=== PATIENT | female | born 1980 | race Caucasian/White ===

== ENCOUNTER 2022-12-19 10:11 | Outpatient (OUT) | payer OTHER, SELFPAY ==
--- NOTE | 2022-12-19 10:20 | XR_ITS ---
The [address] [address] Patient Name: SHANNAN CARRION MRN: [id number] date: 1980 Sex: F Assigned Patient Location: [facility] Current Patient Location: [facility] Accession/Order Number: [id number] Exam Date: 12/19/2022 10:25 Report Date: 12/19/2022 15:17 At the request of: IBETH MELTON Procedure: XR shoulder LT min 2V EXAM: XR shoulder LT min 2V HISTORY: Pain in left shoulder M25.512 COMPARISON: None. TECHNIQUE: 3 views left shoulder. FINDINGS: Mild degenerative change left acromioclavicular joint. No significant degenerative change left glenohumeral joint. No acute fracture or dislocation although there may be mild chronic healed left distal clavicular deformity. Visualized left lung is clear. IMPRESSION: Chronic change left shoulder as noted without acute process. Electronically authenticated by: EMELIA PHILLIPS Date: 12/19/2022 15:17
== END 2022-12-19 10:12 ==
PROVIDERS: PCP Family Medicine; Visit Provider Family Medicine
DX: M25.512 Pain in left shoulder (principal)
CPT/HCPCS: 73030

== ENCOUNTER 2022-12-29 10:21 | Outpatient (OUT) | payer OTHER, SELFPAY ==
--- NOTE | 2022-12-29 10:24 | MM_ITS ---
Patient: SHANNAN CARRION Exam Date: 12/29/2022 : 1980 Gender:F Ordering : DR Moiz Johnston . Admission #: [id number] Family : Order #: [id number] CLICK HERE TO VIEW EXAM RADIOLOGY REPORT PROCEDURE: MM TOMOSYNTHESIS SCREENING BI COMPARISON: None. INDICATIONS: Screening mammogram Z12.31 Calculator Name NCI Breast Cancer Risk Assessment Tool 5 Year Breast Cancer Risk 0.60% Lifetime Breast Cancer Risk 8.00% Personal Breast Cancer No Personal Ovarian Cancer No Treatments None Family Cancers Grandmother-maternal with bone cancer at age 70. LOCATION: [facility] BREAST COMPOSITION: Scattered areas fibroglandular density. FINDINGS: DIAGNOSTIC CATEGORY 2--BENIGN FINDING: RIGHT BREAST: No significant suspicious finding. Scattered benign-appearing calcifications are present. LEFT BREAST: No significant suspicious finding. RECOMMENDATIONS: ROUTINE MAMMOGRAM AND CLINICAL EVALUATION IN 12 MONTHS. PLEASE NOTE: A NORMAL MAMMOGRAM DOES NOT EXCLUDE THE POSSIBILITY OF BREAST CANCER. A CLINICALLY SUSPICIOUS PALPABLE LUMP SHOULD BE BIOPSIED. Dictated by: Shemar Heck M.D. on 12/29/2022 at 11:43 Approved by: Shemar Heck M.D. on 12/29/2022 at 11:44
== END 2022-12-29 10:22 ==
LOC: MAMMO 10:21
PROVIDERS: PCP Family Medicine; Visit Provider Family Medicine
DX: Z12.31 Encounter for screening mammogram for malignant neoplasm of breast (principal); Z80.8 Family history of malignant neoplasm of other organs or systems
CPT/HCPCS: 77063; 77067

== ENCOUNTER 2023-04-14 10:47 | Outpatient (OUT) | payer OTHER, SELFPAY ==
[2023-04-14 11:17] LABS: Basophils Percent Auto 0.4 % (0.2-2.0); Eosinophils Absolute Auto 0.1 10^3/uL (0.0-0.7); Eosinophils Percent Auto 1.1 % (0.9-7.0); Estimated Average Glucose 94 mg/dL; Glycohemoglobin A1C 4.9 % (4.5-6.2); Hematocrit 40.1 % (36.0-48.0); Hemoglobin 13.6 g/dL (12.0-16.0); Immature Granulocytes Abs Auto 0.03 10^3/uL (0.00-0.03); Immature Granulocytes Pct Auto 0.4 % (0.0-0.5); Lymphocytes Absolute Auto 2.3 10^3/uL (1.2-3.8); Lymphocytes Percent Auto 28.4 % (20.5-60.0); Mean Corpuscular HGB Conc 33.9 g/dL (29.9-35.2); Mean Corpuscular Hemoglobin 32.6 pg (26.7-34.0); Mean Corpuscular Volume 96.2 fL (81.0-99.0); Mean Platelet Volume 10.3 fL (9.5-13.5); Monocytes Absolute Auto 0.4 10^3/uL (0.3-0.8); Monocytes Percent Auto 4.4 % (1.7-12.0); Neutrophils Absolute Auto 5.2 10^3/uL (1.4-6.5); Neutrophils Percent Auto 65.3 % (43.0-75.0); Platelet Count 277 10^3/uL (150-450); Red Blood Count 4.17 10^6/uL (4.20-5.40); Red Cell Distribution Width 11.5 % (11.0-15.0)
[2023-04-14 11:39] LABS: Alanine Aminotransferase 28 U/L (14-59); Albumin Globulin Ratio 1.1; Albumin Level 3.8 g/dL (3.4-5.0); Alkaline Phosphatase 65 U/L (46-116); Anion Gap 13.8; Aspartate Amino Transferase 13 U/L (15-37); BUN Creatinine Ratio 16.4; Bilirubin Total 0.4 mg/dL (0.2-1.0); Calcium 9.1 mg/dL (8.5-10.1); Carbon Dioxide 25.1 mmol/L (21.0-32.0); Chloride 103 mmol/L (98-107); Chol HDL Ratio 4.2; Cholesterol 202 mg/dL (<=200); Estimated GFR (African America >60 (>=60); Estimated GFR (Non-African Ame >60 (>=60); Globulin 3.4 g/dL; Glucose 81 mg/dL (74-106); HDL Cholesterol 48 mg/dL (40-60); Potassium 3.9 mmol/L (3.5-5.1); Sodium 138 mmol/L (136-145); Total Protein 7.2 g/dL (6.4-8.2); Triglycerides 106 mg/dL (<=150); VLDL CHOLESTEROL 21.2 mg/dL
== END 2023-04-14 10:48 | disposition home or self-care (01) ==
PROVIDERS: PCP Family Medicine; Visit Provider Family Medicine
DX: Z00.00 Encounter for general adult medical examination without abnormal findings (principal); E78.5 Hyperlipidemia, unspecified; R73.09 Other abnormal glucose
CPT/HCPCS: 36415; 80053; 80061; 83036; 85025

== ENCOUNTER 2023-05-29 14:22 | Outpatient (OUT) | payer OTHER, SELFPAY ==
--- OUTSIDE RECORDS SUMMARY | 2023-06-27 21:47 | XMS_ITS | CCD ---
Author Name Unknown Address [address] [place] [address] Organization [facility] Care Team Providers Care Contracting Analyst Name Role Phone LINH, DR CRISTINA Primary Care Unavailable MARKER, DR GUEVARA Attending Unavailable MARKER, DR GUEVARA Consulting Unavailable MARKER, DR GUEVARA Admitting Unavailable SAID, BINDAVID Consulting Unavailable HOY, DR CRISTINA Attending Unavailable HOY, DR CRISTINA Consulting Unavailable HOY, DR CRISTINA Primary Care Unavailable HOY, DR CRISTINA Admitting Unavailable MISC, DR KAMARA Consulting Unavailable MISC, DR KAMARA Admitting Unavailable HOAniket, DR CRISTINA Primary Care Unavailable MISC, DR KAMARA Attending Unavailable NILLBhavik Attending Unavailable Ibeth Melton Referring Unavailable Allergies Allergy Classification Reported Allergen(s) Allergy Type Date of Onset Reaction(s) Facility (1 source) No Known Medication Allergies; Translations: [No Known Medication Allergies] Propensity to adverse reactions (disorder) [facility] Repository Problems Active Problems Problem Classification Problem Date Documented Da te Episodic/Chronic Abdominal pain (7 sources) Pelvic and perineal pain; Translations: [Unspecified abdominal pain] Onset: 02-10-2022 Episodic Calculus of urinary tract (1 source) Unspecified renal colic; Translations: [UNSPECIFIED RENAL COLIC] Onset: 02-11-2022 Episodic Heart valve disorders (1 source) Other cardiac sounds; Translations: [OTHER CARDIAC SOUNDS] Onset: 04-07-2022 Episodic Substance-related disorders (1 source) Nicotine dependence, cigarettes, uncomplicated; Translations: [NICOTINE DEPEND CIGARETTES UNCOMP] Onset: 02-11-2022 Chronic Past or Other Problems Problem Classification Problem Date Documented Date Episodic/Chronic Immunizations and screening for infectious disease (4 sources) Encounter for screening for infections with a predominantly sexual mode of transmission; Translations: [ENC SCREEN INFECTIONS SEXL TRANSMS] Onset: 05-19-2021 Episodic Results Test Name Value Interpretation Reference Range Facil ity Outside Colonoscopyon 2022 Outside Colonoscopy [id number]#1.00TIFF [facility] Reminderson 06-08-2023 Reminders - From: Jessica Ann LPN To: [facility] - Clinical; Sent: 06/08/2023 11:48:40 EST Show up: 05/07/2033 07:00:00 EDT Subject: colonoscopy recall Due Date/Time: 06/07/2033 07:00:00 EST Reminder/Recall Patient due for screening colonoscopy 06/07/2033. [facility] Lab Reportson 06-07-2023 Lab Reports [id number]#1.00T IFF [facility] Consent for Procedure/Surger yon 05-11-2023 Consent for Procedure/Surgery [id number]#1.00TIFF [facility] Facesheeton 05-11-2023 Facesheet [id number]#1.00TI FF [facility] Ambulatory Visit Summaryon 1 07-10-2022 Ambulatory Visit Summary SHANNAN CARRION :1980 Visit Date:05/10/2023 Ambulatory Visit Instructions Your Care Team Attending Physician - J CARLOS ENRIQUE, hBavik Dhaliwal Primary Care Physician - Ibeth Melton MD Referring Physician - Ibeth Melton MD This Is Your Medications List Contact prescribing physician if questions or concerns amphetamine-dextroamphetamine (Adderall 10 mg oral tablet) terbinafine (terbinafine 250 mg Tab) Procedures Performed None. Discharge Vitals Heart Rate (Peripheral) 72 Respiratory Rate 16 Blood Pressure 118/84 Height 177.8 cm Height 70 in Weight 81.9 kg Weight 180.18 lb BMI 25.91 Medications What How Much When Instructions Unchanged amphetamine-dextroamphetamine (Adderall 10 mg oral tablet) 1 Tablets By Mouth Once a day (in the morning) 1 Unknown, 0 Refill(s) Contact prescribing physician if questions or concerns Unchanged terbinafine (terbinafine 250 mg Tab) 1 Tablets By Mouth Every day 1 Unknown, 0 Refill(s) Contact prescribing physician if questions or concerns Medications and Immunizations Administered Not Given influenza virus vaccine, inactivated, Patient Refuses Allergies No Known Allergies No Known Medication Allergies Problems Ongoing - Any problem that you are currently receiving treatment for. BMI 25.0-25.9,adult Chronic pain Eczema Hemorrhoids Overweight Poor concentration Psoriasis Patient Survey You may receive a survey via text or e-mail asking about your office visit. Please share your experience with us by completing your survey. We appreciate your feedback and thank you for choosing us for your care. [facility] Ambulatory Visit Summary SHANNAN CARRION :1980 Visit Date:05/10/2023 Ambulatory Visit Instructions Your Care Team Attending Physician - J CARLOS ENRIQUE, Bhavik Dhaliwal Primary Care Physician - Ibeth Melton MD Referring Physician - Ibeth Meltno MD This Is Your Medications List Contact prescribing physician if questions or concerns amphetamine-dextroamphetamine (Adderall 10 mg oral tablet) terbinafine (terbinafine 250 mg Tab) Procedures Performed None. Discharge Vitals Heart Rate (Peripheral) 72 Respiratory Rate 16 Blood Pressure 118/84 Height 177.8 cm Height 70 in Weight 81.9 kg Weight 180.18 lb BMI 25.91 Medications What How Much When Instructions Unchanged amphetamine-dextroamphetamine (Adderall 10 mg oral tablet) 1 Tablets By Mouth Once a day (in the morning) 1 Unknown, 0 Refill(s) Contact prescribing physician if questions or concerns Unchanged terbinafine (terbinafine 250 mg Tab) 1 Tablets By Mouth Every day 1 Unknown, 0 Refill(s) Contact prescribing physician if questions or concerns Medications and Immunizations Administered Not Given influenza virus vaccine, inactivated, Patient Refuses Allergies No Known Allergies No Known Medication Allergies Problems Ongoing - Any problem that you are currently receiving treatment for. BMI 25.0-25.9,adult Chronic pain Eczema Hemorrhoids Overweight Poor concentration Psoriasis Patient Survey You may receive a survey via text or e-mail asking about your office visit. Please share your experience with us by completing your survey. We appreciate your feedback and thank you for choosing us for your care. [facility] Insurance Correspondence Off iceon 04-14-2023 Insurance Correspondence Office [id number] Normal [facility] Physician Referralon 023 Physician Referral [id number] Normal [facility] Physician Referral [id number] Normal [facility] Physician Referralon 023 Physician Referral [id number]:127 Normal [facility] CULTURE URINEon 04-05-2022 CULTURE URINE Culture Observations : NO GROWTH. Normal [facility] l Comment on above: Performed By: #### U RCX #### [facility] [address] [place] [address] Dr. Candido Post UA RANDOM W/MICROSCOPICon BACTERIA TRACE Abnormal NONE SEEN [facility] Comment on above: Performed By: #### U AMIC #### [facility] [address] [place] [address] Dr. Candido Post Bilirubin Ql (U) Negative Normal NEGATIVE [facility] Comment on above: Performed By: #### U AMIC #### [facility] [address] [place] [address] Dr. Candido Post CAST NONE SEEN Normal NONE SEEN [facility] Comment on above: Performed By: #### U AMIC #### [facility] [address] [address] [address] Candido Post Clarity (U) SL CLOUDY Abnormal CLEAR [facility] Comment on above: Performed By: #### U AMIC #### [facility] [address] [place] [address] Dr. Candido Post Color (U) LT. YELLOW Normal YELLOW [facility] Comment on above: Performed By: #### U AMIC #### [facility] [address] [place] [address] Dr. Candido Post Crystals LM Nom (Urine sed) NONE SEEN Normal NONE SEE N [facility] Comment on above: Performed By: #### U AMIC #### [facility] [address] [address] [address] Candido Post Epithelial cells LM Ql (Urine sed) RARE Normal N ONE SEEN /RARE [facility] Comment on above: Performed By: #### U AMIC #### [facility] [address] [address] [address] Candido Post Glucose Ql (U) Negative Normal NEGATIVE [facility] Comment on above: Performed By: #### U AMIC #### [facility] [address] [address] [address] Candido Post Hemoglobin Ql (U) Negative Normal NEGATIVE The [facility] Comment on above: Performed By: #### U AMIC #### [facility] [address] [place] [address] Dr. Candido Post Ketones Ql (U) Negative Normal NEGATIVE [facility] Comment on above: Performed By: #### U AMIC #### [facility] [address] [address] [address] Candido Post LEUKOCYTES Negative Normal NEGATIVE [facility] Comment on above: Performed By: #### U AMIC #### [facility] [address] [place] [address] Dr. Candido Post MUCOUS NONE SEEN Normal NONE SEEN [facility] Comment on above: Performed By: #### U AMIC #### [facility] [address] [place] [address] Dr. Candido Post Nitrite Ql (U) Negative Normal NEGATIVE [facility] Comment on above: Performed By: #### U AMIC #### [facility] [address] [place] [address] Dr. Candido Post pH (U) 6.5 [pH] Normal 5-9 [facility] Comment on above: Performed By: #### U AMIC #### [facility] [address] [place] [address] Dr. Candido Post RBC 0-2 Normal 0-2 [facility] Comment on above: Performed By: #### U AMIC #### [facility] [address] [place] [address] Dr. Candido Post SPEC GRAVITY <=1.005 Abnormal 1.005-<=1.025 [facility] Comment on above: Performed By: #### U AMIC #### [facility] [address] [place] [address] Dr. Candido Post UA PROTEIN Negative Normal NEGATIVE/ TRACE [facility] Comment on above: Performed By: #### U AMIC #### [facility] [address] [place] [address] Dr. Candido Post Urobilinogen Qn (U) 0.2 {Stephan'U}/dL Normal 0.2 - 1. [address] [facility] Comment on above: Performed By: #### U AMIC #### [facility] [address] [place] [address] Dr. Candido Post WBC NONE SEEN Normal NONE SEEN [facility] Comment on above: Performed By: #### U AMIC #### [facility] [address] [place] [address] Dr. Candido Post CBC AUTO DIFFon 02-10-2022 BASO # 0.0 103/ul Normal 0.0-0.1 [facility] ost[facility] Comment on above: Performed By: #### C BC #### [facility] [address] [place] [address] Dr. Candido Post Basophils/100 WBC (Bld) 0.4 % Normal 0.2-2.0 [facility] Comment on above: Performed By: #### C BC #### [facility] [address] [place] [address] Dr. Candido Post EO # 0.3 103/ul Normal 0.0-0.7 [facility] Comment on above: Performed By: #### C BC #### [facility] [address] [place] [address] Dr. Candido Post Eosinophils/100 WBC (Bld) 2.3 % Normal 0.9-7.[address] [facility] Comment on above: Performed By: #### C BC #### [facility] [address] [place] [address] Dr. Candido Post Erythrocyte distribution wid th (RBC) [Ratio] 12.0 % Normal 11.0-15.0 [facility] Comment [facility] above: Performed By: #### C BC #### [facility] [address] [place] [address] Dr. Candido Post Hematocrit (Bld) [Volume fraction] 40.2 % Normal 3 6.0-48.[address] [facility] Comment on above: Performed By: #### C BC #### [facility] [address] [place] [address] Dr. Candido Post Hemoglobin (Bld) [Mass/Vol] 13.9 g/dL Normal 12.0-16. [address] [facility] Comment on above: Performed By: #### C BC #### [facility] [address] [place] [address] Dr. Candido Post IG # 0.02 10e3/ul Normal 0.00-0.[address] [facility] Comment on above: Performed By: #### C BC #### [facility] [address] [place] [address] Dr. Candido Post IG % 0.2 % Normal 0.0-0.5 [facility] Comment on above: Performed By: #### C BC #### [facility] [address] [place] [address] Dr. Candido Post LYMPH # 4.2 103/ul Critically high 1.2-3.8 [facility] Comment on above: Performed By: #### C BC #### [facility] [address] [place] [address] Dr. Candido Post Lymphocytes/100 WBC (Bld) 39.0 % Normal 20.5-60.[address] [facility] Comment on above: Performed By: #### C BC #### [facility] [address] [place] [address] Dr. Candido Post MANUAL DIFF REQ NO Normal [facility] Comment on above: Performed By: #### C BC #### [facility] [address] [place] [address] Dr. Caniddo Post MCH (RBC) [Entitic mass] 32.7 pg Normal 26.7-34.[address] [facility] Comment on above: Performed By: #### C BC #### [facility] [address] [place] [address] Dr. Candido Post MCHC (RBC) [Mass/Vol] 34.6 g/dL Normal 29.9-35.[address] [facility] Comment on above: Performed By: #### C BC #### [facility] [address] [place] [address] Dr. Candido Post MCV (RBC) [Entitic vol] 94.6 fL Normal 81.0-99.0 [facility] Comment on above: Performed By: #### C BC #### [facility] [address] [place] [address] Dr. Candido Post MONO # 0.6 103/ul Normal 0.3-0.8 [facility] Comment on above: Performed By: #### C BC #### [facility] [address] [place] [address] Dr. Candido Post Monocytes/100 WBC (Bld) 5.7 % Normal 1.7-12.0 [facility] Comment on above: Performed By: #### C BC #### [facility] [address] [place] [address] Dr. Candido Post NEUT # 5.6 103/ul Normal 1.4-6.5 [facility] Comment on above: Performed By: #### C BC #### [facility] [address] [place] [address] Dr. Candido Post Neutrophils/100 WBC (Bld) 52.4 % Normal 43.0-75.[address] [facility] Comment on above: Performed By: #### C BC #### [facility] [address] [place] [address] Dr. Candido Post Platelet mean volume (Bld) [Entitic vol] 9.9 fL Normal 9.5-13.[address] [facility] Comment on above: Performed By: #### C BC #### [facility] [address] [place] [address] [address] [address] Candido Post PLT 255 103/ul Normal 150-450 [facility] Comment on above: Performed By: #### C BC #### [facility] [address] [place], [place] [address] Dr. Candido Post RBC 4.25 106/ul Normal 4.20-5.[address] [facility] Comment on above: Performed By: #### C BC #### [facility] [address] [place], [place] [address] Dr. Candido Post WBC 10.7 103/ul Normal 4.0-11.[address] [facility] Comment on above: Performed By: #### C BC #### [facility] [address] [place], [place] [id number] Dr. Candido Post CT ABD/PELVIS WO CONon 02-10 CT ABD/PELVIS WO CON EXAM: CT ABD/PELVIS WO CON 02/09/2022 11:18 PM EDT OH001 CLINICAL STATEMENT: CALCULUS OF KIDNEY COMPARISON: No prior studies are available at the time of dictation. TECHNIQUE: Helically acquired images were obtained of the abdomen and pelvis without IV contrast. No oral contrast was administered. AEC is utilized. 2-D reconstructed images are provided. FINDINGS: Multiple nonobstructive right renal calculi measuring up to 3 mm. There is no hydronephrosis or hydroureter. Hepatomegaly. The gallbladder is unremarkable. The upper abdominal solid organs are unremarkable. There is no bowel obstruction or free air. There is no ascites. There is no evidence of aortic aneurysm. There is no retroperitoneal adenopathy. There is no appendicitis or diverticulitis. There are no pelvic masses or loculated fluid collections. Uterus and bladder unremarkable. The lung bases are clear. There are no destructive bone lesions identified. IMPRESSION: Multiple nonobstructive right renal calculi measuring up to 3 mm. No hydronephrosis or hydroureter. Hepatomegaly. FOLLOW-UP: Follow-up as clinically indicated. Electronically authenticated by: LISA SAID Date: 2022-02-10 00:55 Normal [facility] CULTURE URINEon 02-10-2022 CULTURE URINE Culture Observations : NO GROWTH. Normal [facility] l Comment on above: Performed By: #### U RCX #### [facility] [address] [place] [address] Dr. Candido Post ER URINE PROFILEon 2 Bilirubin Ql (U) Negative Normal NEGATIVE [facility] Comment on above: Performed By: #### Clay HOLGUIN UMICRO #### [facility] [address] [place] [address] Dr. Candido Post Clarity (U) CLEAR Normal CLEAR [facility] Comment on above: Performed By: #### Clay HOLGUIN UMICRO #### [facility] [address] [place] [address] Dr. Candido Post Color (U) LT. YELLOW Normal YELLOW [facility] Comment on above: Performed By: #### Clay HOLGUIN UMICRO #### [facility] [address] [place] [address] Dr. Candido Post ERUAHJamie A micrscopic examina tion will be performed if indicated. Normal [facility] l Comment on above: Performed By: #### Clay HOLGUIN UMICRO #### [facility] [address] [place] [address] Dr. Candido Post Glucose Ql (U) Negative Normal NEGATIVE [facility] Comment on above: Performed By: #### Clay HOLGUIN UMICRO #### [facility] [address] [place] [address] Dr. Candido Post Hemoglobin Ql (U) MODERATE Abnormal NEGATIVE [facility] Comment on above: Performed By: #### Clay HOLGUIN UMICRO #### [facility] [address] [place] [address] Dr. Candido Post Ketones Ql (U) Negative Normal NEGATIVE [facility] Comment on above: Performed By: #### Clay HOLGUIN UMICRO #### [facility] [address] [place] [address] Dr. Candido Post LEUKOCYTES Negative Normal NEGATIVE [facility] Comment on above: Performed By: #### Clay HOLGUIN UMICRO #### [facility] [address] [place] [address] Dr. Candido Post Nitrite Ql (U) Negative Normal NEGATIVE [facility] Comment on above: Performed By: #### Clay HOLGUIN UMICRO #### [facility] [address] [place] [address] Dr. Candido Post pH (U) 6.0 [pH] Normal 5-9 [facility] Comment on above: Performed By: #### Clay HOLGUIN UMICRO #### [facility] [address] [place] [address] Dr. Candido Post SPEC GRAVITY >=1.030 Abnormal 1.005-<=1.025 [facility] Comment on above: Performed By: #### Clay HOLGUIN UMICRO #### [facility] [address] [place] [address] Dr. Candido Post UA PROTEIN Negative Normal NEGATIVE/ TRACE [facility] Comment on above: Performed By: #### Clay HOLGUIN UMICRO #### [facility] [address] [place] [address] Dr. Candido Post UR MICRO IND INDICATED Normal [facility] Comment on above: Performed By: #### Clay HOLGUIN UMICRO #### [facility] [address] [place] [address] Dr. Candido Post Urobilinogen Qn (U) 0.2 {Stephan'U}/dL Normal 0.2 - 1. [address] [facility] Comment on above: Performed By: #### Clay HOLGUIN UMICRO #### [facility] [address] [place] [address] Dr. Candido Post PROF 14(COMP METB)on 022 Albumin [Mass/Vol] 3.8 g/dL Normal 3.4-5.0 [facility] Comment on above: Performed By: #### C MP #### [facility] [address] [place] [address] Dr. aCndido Post Albumin/Globulin [Mass ratio] 1.2 {ratio} Normal [facility] Comment on above: Performed By: #### C MP #### [facility] [address] [place] [address] Dr. Candido Post ALP [Catalytic activity/Vol] 64 U/L Normal 46-[address] [facility] Comment on above: Performed By: #### C MP #### [facility] [address] [address] [address] Candido Post ALT [Catalytic activity/Vol] 26 U/L Normal 14-[address] [facility] Comment on above: Performed By: #### C MP #### [facility] [address] [place] [address] Dr. Candido Post Anion gap [Moles/Vol] 13.2 mmol/L Normal [facility] Comment on above: Performed By: #### C MP #### [facility] [address] [place] [address] Dr. Candido Post AST [Catalytic activity/Vol] 14 U/L Critically low 15- [address] [facility] Comment on above: Performed By: #### C MP #### [facility] [address] [place] [address] Dr. Candido Post Bilirubin [Mass/Vol] 0.3 mg/dL Normal 0.2-1.[address] [facility] Comment on above: Performed By: #### C MP #### [facility] [address] [place] [address] Dr. Candido Post Calcium [Mass/Vol] 9.5 mg/dL Normal 8.5-10.1 [facility] Comment on above: Performed By: #### C MP #### [facility] [address] [address] [address] Candido Post Chloride [Moles/Vol] 104 mmol/L Normal 98-[address] [facility] Comment on above: Performed By: #### C MP #### [facility] [address] [place] [address] Dr. Candido Post CO2 [Moles/Vol] 25.6 mmol/L Normal 21.0-32.0 [facility] Comment on above: Performed By: #### C MP #### [facility] [address] [address] [address] Candido Post Creatinine [Mass/Vol] 0.82 mg/dL Normal 0.55-1.[address] [facility] Comment on above: Performed By: #### C MP #### [facility] [address] [address] [address] Candido Post EGFR-AF ICELANDIC >60 Normal >=60 [facility] Comment on above: Performed By: #### C MP #### [facility] [address] [address] [address] Candido Post EGFR-NON AF ICELANDIC >60 Normal >=[address] [facility] Comment on above: Performed By: #### C MP #### [facility] [address] [address] [address] Candido Post Globulin (S) [Mass/Vol] 3.2 g/dL Normal [facility] Comment on above: Performed By: #### C MP #### [facility] [address] [address] [address] Candido Post Glucose [Mass/Vol] 116 mg/dL Critically high 74-106 [facility] Comment on above: Performed By: #### C MP #### [facility] [address] [address] [address] Candido Post Potassium [Moles/Vol] 3.8 mmol/L Normal 3.5-5.[address] [facility] Comment on above: Performed By: #### C MP #### [facility] [address] [address] [address] Candido Post Protein [Mass/Vol] 7.0 g/dL Normal 6.4-8.2 [facility] Comment on above: Performed By: #### C MP #### [facility] [address] [address] [address] Candido Post Sodium [Moles/Vol] 139 mmol/L Normal 136-145 [facility] Comment on above: Performed By: #### C MP #### [facility] [address] [place] [address] Dr. Candido Post Urea nitrogen [Mass/Vol] 14.0 mg/dL Normal 7.0-18.0 [facility] Comment on above: Performed By: #### C MP #### [facility] [address] [place] [address] Dr. Candido Post Urea nitrogen/Creatinine [Mass ratio] 17.1 mg/mg Normal [facility] Comment on above: Performed By: #### C MP #### [facility] [address] [place] [address] Dr. Candido Post URINE MICROSCOPIC ONLYon BACTERIA SMALL Abnormal NONE SEEN [facility] Comment on above: Performed By: #### Clay HOLGUIN UMICRO #### [facility] [address] [place] [address] Dr. Candido Post Bacteria identified Cx Nom (U) INDICATED Normal [facility] Comment on above: Performed By: #### Clay HOLGUIN UMICRO #### [facility] [address] [place] [address] Dr. Candido Post CAST NONE SEEN Normal NONE SEEN [facility] Comment on above: Performed By: #### Clay HOLGUIN UMICRO #### [facility] [address] [place] [address] Dr. Candido Post Crystals LM Nom (Urine sed) SEEN Abnormal NONE SEE N [facility] Comment on above: Performed By: #### Clay HOLGUIN UMICRO #### [facility] [address] [place] [address] Dr. Candido Post Epithelial cells LM Ql (Urin e sed) MODERATE Abnormal NONE SEEN /RARE [facility] Comment on above: Performed By: #### Clay HOLGUIN UMICRO #### [facility] [address] [place] [address] Dr. Candido Post MUCOUS NONE SEEN Normal NONE SEEN [facility] Comment on above: Performed By: #### Clay HOLGUIN UMICRO #### [facility] [address] [place] [address] Dr. Candido Post RBC 2-5 Abnormal 0-2 [facility] Comment on above: Performed By: #### E BEATRIZ HOLGUINRO #### [facility] [address] [place] [address] Dr. Candido Post URIC ACID CRYSTALS RARE Normal [facility] Comment on above: Performed By: #### E RUMadhuri UMMYRONRO #### [facility] [address] [place] [address] Dr. Candido Post WBC 0-2 Abnormal NONE SEEN [facility] Comment on above: Performed By: #### E RUBEATRIZ DhaliwalRO #### [facility] [address] [address] [address] Candido Post HERPES SIMPLEX 1/2 IGGon HSV 1 IgG, Type Spec 9.66 index Critically high 0.00-0.[address] [facility] Comment on above: Result Comment: Nega tive <0.91 Equivocal 0.91 - 1.09 Positive >1.09 Note: Negative indicates no antibodies detected to HSV-1. Equivocal may suggest early infection. If clinically appropriate, retest at later date. Positive indicates antibodies detected to HSV-1. Performed By: #### H SV IGG #### [facility] [address] [place] [address] Dr. Candido Post HSV 2 IgG Type Spec <0.91 Normal 0.00-0.90 [facility] Comment on above: Result Comment: Nega tive <0.91 Equivocal 0.91 - 1.09 Positive >1.09 Note: Negative indicates no antibodies detected to HSV-2. Equivocal may suggest early infection. If clinically appropriate, retest at later date. Positive indicates antibodies detected to HSV-2. Performed By: #### H SV IGG #### [facility] [address] [place] [address] Dr. Candido Post Encounters Encounter Date Encounter Type Care Provider Facility Start: 05-10-2023 End: 05-11-2023 ambulatory Bhavik WHITMAN [facility] [place] Start: 04-13-2023 ambulatory Bhavik WHITMAN Facility:[facility] [place] Start: 04-05-2022 End: 04-06-[address] IBETH MELTON Facility:[facility] Start: 02-10-2022 End: 02-10-[address] IBETH MELTON Facility:[facility] Start: 05-19-2021 End: 05-20-[address] DOCTOR NOLASCO Facility:[facility] Payers Date Payer Category Payer Unknown [id number] [id number] 1979 Unknown [id number] [id number] 1979 Unknown [id number] [id number] [id number] 1979 Unknown [id number] [id number] 1959 Unknown [id number] Clinical Note 05-11-2023 Note Date & Type Note Facility 05-11-2023 Note Chief Complaint consultation for hemorrhoids HPI Staff 43 year old female presents on consultation from Dr. Melton for hemorrhoids. Starting November of this year, she noted burning external rectal pain and scant amount of blood on toilet tissue after bowel movements. Tried Tucks pads and Prep H without change in symptoms. Was instructed by PCP to increase fluids and fiber and was prescribed Hydrocortisone suppositories; she tried this for several months without relief. Doing sitz baths 3-4 times per day. She notes small external bulge around anus. She does strain for bowel movements 1-2 times per week. Follow up with PCP in April with continues symptoms. History of Present Illness 43 yo female with h/o ADD, psoriasis, referred for possible hemorrhoids; patient reports 6 month h/o intermittent external rectal pain, mild rectal bleeding on toilet tissue after bms, no change in bms, does have intermittent constipation with straining, no hematochezia or decreased caliber of stools; using Tucks pads and Prep H without improvement; tried Hydrocortisone supp without improvement; sitz baths 3-4 x/day with small improvement; notes prolapsing bulge with pain/irritation; no h/o colonoscopy, abd or anal surgery; no asa or NSAID use; smokes daily. Review of Systems PHQ Score Initial Depression Screen Score: 0 ROS - Provider Constitutional: no fever, no sweats, no weight loss. Eyes: no glasses, no blurred vision, no visual loss. ENMT: no dentures, no hoarseness, no swallowing difficulties, no hearing loss, no ear infection(s), no nose bleeds. Cardiovascular: normal blood pressure, no chest pain, regular heartbeat, no heart murmur. Respiratory: no shortness of breath, no cough, no asthma, no wheezing. Gastrointestinal: no nausea, no vomiting, no diarrhea, no constipation, no blood in stool, no change in bowel habits, no abdominal pain, no hepatitis. Genitourinary: no kidney stones, no urine infection, no dysuria. Musculoskeletal: no pain, no weakness. Skin: no changing moles, no rash, no skin lumps. Neurologic: no seizures, no epilepsy, no headache. Psychiatric: no emotional or psychiatric problem. Heme/Lymph: no bleeding problems, no anemia, no blood clots, no transfusions. Allergy/Immunologic: no swollen lymph nodes/glands, no IV drug abuse. Other: Additional ROS info: Except as noted in the above Review of Systems and in the History of Present Illness, all other systems have been reviewed and are negative or noncontributory. Physical Exam Vitals & Measurements HR: 72(Peripheral) RR: 16 BP: 118/84 HT: 70 in HT: 177.8 cm WT: 81.9 kg WT: 180.18 lb BMI: 25.91 HEENT: normal conjunctiva, sclera clear, no scleral icterus, EOM intact, PERRLA, oral mucosa moist without lesions. Neck: trachea midline, no mass, symmetric, no thyromegaly or nodules, no adenopathy Respiratory: lungs CTA, respirations non labored. Cardiovascular: regular rate and rhythm, no murmur, no pedal edema or varicosities. Gastrointestinal: soft, non distended, no tenderness, no masses, no palpable hernias, diastasis recti no, no hepatosplenomegaly; normal bs rectal: no external hemorrhoids or skin tags; no perianal irritation; posterior midline thickening/scar, no blood, possible hypertrophic anal papillae right lateral; no masses or blood. Musculoskeletal: normal gait, digits and nails without infection, nodes, cyanosis, clubbing. Skin: no rashes, no lesions, no ulcers, no subcutaneous nodules, induration. Psychiatric/Neuro: oriented to time, place, person, judgement normal, affect appropriate for age, insight intact, no focal deficits. Tests: review of old records completed , Discussed surgical options, risks, and possible complications with patient. Assessment/Plan 1. Rectal pain, (K62.89: Other specified diseases of anus and rectum) plan colonoscopy under anesthesia; anal exam under anesthesia, possible excision of hypertrophic anal papilla; informed consent obtained. Hypertrophied anal papilla see # 1 2. Rectal bleeding (K62.5: Hemorrhage of anus and rectum) see # 1 Follow-up No qualifying data available Problem List/Past Medical History Ongoing BMI 25.0-25.9,adult Chronic pain Eczema Hemorrhoids Hypertrophied anal papilla Overweight Poor concentration Psoriasis Rectal bleeding Rectal pain Historical No qualifying data Procedure/Surgical History None. Medications Adderall 10 mg oral tablet, 10 mg= 1 tab(s), Oral, qAM terbinafine 250 mg Tab, 250 mg= 1 tab(s), Oral, Daily Allergies No Known Allergies No Known Medication Allergies Social History Alcohol Current, Beer, 1-2 times per week, 05/10/2023 Substance Abuse - Denies Substance Abuse, 05/10/2023 Tobacco 5-9 cigarettes (between 1/4 to 1/2 pack)/day in last 30 days Tobacco Use:. Never Smokeless Tobacco Use:. Cigarettes, 0.25 per day. Started age 24.0 Years. Yes, 05/10/2023 Family History Brain tumor: Sister. Diabetes mellitus type 2: Father. Heart d (more content not included)... [facility] Comment on above: Result Comment: Elec tronically Signed By: J CARLOS ENRIQUE, Bhavik Michel\Date and Time Signed: 05/11/23 16:46 EDT Summary Purpose Family History No Family History Records FoundNo Family History Records Found Advance Directives No Advanced Directives Records FoundNo Advanced Directives Records Found Additional Source Comments INFORMATION SOURCE (unrecogn ized section and content) DATE CREATED AUTHOR 04/11/2022 [facility] DATE CREATED AUTHOR AUTHOR'S ORGANIZ ATION 06/10/2023 [facility] FOR RECORDS PERTAINING TO PATIENTS WHO ARE OR HAVE BEEN ENROLLED IN A CHEMICAL DEPENDENCY/SUBSTANCEABUSE PROGRAM, SOME INFORMATION MAY BE OMITTED. This clinical summary was aggregated from multiple sources. Caution should be exercised in using it in the provision of clinical care. This summary normalizes information from multiple sources, and as a consequence, information in this document may materially change the coding, format and clinical context of patient data. In addition, data may be omitted in some cases. CLINICAL DECISIONS SHOULD BE BASED ON THE PRIMARY CLINICAL RECORDS. [facility] provides no warranty or guarantee of the accuracy or completeness of information in this document.
== END 2023-05-29 14:23 | disposition home or self-care (01) ==
LOC: PST 14:23
PROVIDERS: PCP Family Medicine; Visit Provider Surgery
DX: Z01.818 Encounter for other preprocedural examination (principal); K62.89 Other specified diseases of anus and rectum; K62.5 Hemorrhage of anus and rectum

== ENCOUNTER 2023-06-07 06:06 | Day surgery (SDC) | payer OTHER, SELFPAY ==
--- NOTE | 2023-06-07 | OP_ITS ---
OPERATION DATE: ??06/07/2023 PREOPERATIVE DIAGNOSIS:? Rectal pain, intermittent rectal bleeding. POSTOPERATIVE DIAGNOSIS:? Normal colonoscopy to cecum with prominent rectal veins as well as small hypertrophic anal papillae. PROCEDURE:? Colonoscopy to cecum. SURGEON:? Bhavik Cano M.D. ANESTHESIA:? Monitored anesthesia care. ESTIMATED BLOOD LOSS:? Zero. INDICATIONS AND CONSENT:? Patient is a 43-year-old female with history of intermittent rectal bleeding as well as rectal pain.? Indications, risks, benefits, alternatives of proceeding with colonoscopy were explained extensively to the patient, including the risks of bleeding, colon perforation or anesthetic complications.? All of her questions were answered.? Informed consent was obtained. PROCEDURE:? Patient brought to the operating room, placed in the left lateral decubitus position.? Monitored anesthesia care was provided.? Rectal exam was performed which showed no masses or blood.? The scope was inserted into the anal canal.? Under direct visualization was advanced.? It was advanced to the cecum where cecal markings were clearly identified.? Upon withdrawal of the scope, mucosal surfaces were carefully examined.? There were no mass lesions or polyps.? No inflammatory changes or ulcerations.? No significant diverticulosis.? The scope was retroflexed in the anal canal.? There was noted to be a prominent rectal vein, several small hypertrophic anal papillae.? No signs of bleeding.? No old blood or active bleeding.? No fissures or significant hemorrhoidal disease.? Scope was then withdrawn.? Patient tolerated procedure well, was sent to recovery room in good condition. Follow up colonoscopy should be in 10 years. CC:? Moiz Johnston M.D. MARLEE
[2023-06-07 06:39] VITALS: BP 119/68; PULSE 82; RESP 18; TEMP 36.2; O2SAT 96; BMI 25.5
[2023-06-07 06:41] LABS: HCG Qualitative NEGATIVE (NEGATIVE)
[2023-06-07] MEDS: LACTATED RINGER'S SOLUTION 1,000 ML 50 ML IV (07:01)
[2023-06-07 07:54] VITALS: BP 97/83; PULSE 82; RESP 16; O2SAT 97
[2023-06-07 08:13] VITALS: BP 105/66; PULSE 75; RESP 14; O2SAT 98
== END 2023-06-07 08:24 | disposition home or self-care (01) ==
PROVIDERS: PCP Family Medicine; Visit Provider Surgery
PROC: (CPT 811; principal; 2023-06-07 07:30)
DX: K62.89 Other specified diseases of anus and rectum (principal); K62.5 Hemorrhage of anus and rectum; E66.3 Overweight; Z68.25 Body mass index [BMI] 25.0-25.9, adult; L40.9 Psoriasis, unspecified; F17.210 Nicotine dependence, cigarettes, uncomplicated
CPT/HCPCS: 45378; 36415; 84703; J2704

== ENCOUNTER 2024-04-01 15:08 | Outpatient (RCR) | payer OTHER, SELFPAY | END 2024-04-20 15:59 | disposition home or self-care (01) | LOC: PT 15:08 | PROVIDERS: PCP Family Medicine; Visit Provider Family Medicine | DX: M77.8 Other enthesopathies, not elsewhere classified (principal) | CPT/HCPCS: 20561; 97035; 97110; 97140; 97161 ==

== ENCOUNTER 2024-04-19 11:41 | Outpatient (OUT) | payer OTHER, SELFPAY ==
--- OUTSIDE RECORDS SUMMARY | 2024-04-19 11:44 | XMS_ITS | CCD ---
Author Organization [facility] Care Team Providers Care Twisting Frame Changer Name Role Phone VICKIE, DR CRISTINA Primary Care Unavailable MARKER, DR GUEVARA Attending Unavailable MARKER, DR GUEVARA Consulting Unavailable MARKER, DR GUEVARA Admitting Unavailable SAID, BINOR Consulting Unavailable HOY, DR CRISTINA Attending Unavailable HOY, DR CRISTINA Consulting Unavailable HOY, DR CRISTINA Primary Care Unavailable HOY, DR CRISTINA Admitting Unavailable MISC, DR KAMARA Consulting Unavailable MISC, DR KAMARA Admitting Unavailable HOY, DR CRISTINA Primary Care Unavailable MISC, DR KAMARA Attending Unavailable NILL, Bhavik Dhaliwal Attending Unavailable HoyIbeth Referring Unavailable NILLBhavik Attending Unavailable Allergies Allergy Classification Reported Allergen(s) Allergy Type Date of Onset Reaction(s) Facility (1 source) No Known Medication Allergies; Translations: [No Known Medication Allergies] Propensity to adverse reactions (disorder) [facility] Repository Problems Active Problems Problem Classification [...] Facil ity Outside Colonoscopyon 2022 Outside Colonoscopy [id number] .00TIFF [facility] Reminderson 06-08-2023 Reminders - From: Jessica Ann LPN To: [facility] - Clinical; Sent: 06/08/2023 11:48:40 EST Show up: 05/07/2033 07:00:00 EDT Subject: colonoscopy recall Due Date/Time: 06/07/2033 07:00:00 EST Reminder/Recall Patient due for screening colonoscopy 06/07/2033. [facility] Lab Reportson 06-07-2023 Lab Reports [id number] .00TIFF [facility] Consent for Procedure/Surger yon 05-11-2023 Consent for Procedure/Surgery [id number] .00TIFF [facility] Facesheeton 05-11-2023 Facesheet [id number] .00TIFF [facility] Ambulatory Visit Summaryon 1 07-10-2022 Ambulatory Visit Summary SHANNAN CARRION :1980 Visit Date:05/10/2023 Ambulatory Visit Instructions Your Care Team Attending Physician - Bhavik WHITMAN MD Primary Care Physician - Ibeth Johnston MD Referring Physician - Ibeth Johnston MD This Is Your Medications List Contact prescribing physician if questions or concerns amphetamine-dextroamp hetamine (Adderall 10 mg oral tablet) terbinafine (terbinafine 250 mg Tab) Procedures Performed None. Discharge Vitals Heart Rate (Peripheral) 72 Respiratory Rate 16 Blood Pressure 118/84 Height 177.8 cm Height 70 in Weight 81.9 kg Weight 180.18 lb BMI 25.91 Medications What How Much When Instructions Unchanged amphetamine-dextroamp hetamine (Adderall 10 mg oral tablet) 1 Tablets [...] you for choosing us for your care. [facility] Ambulatory Visit Summary SHANNAN CARRION :1980 Visit Date:05/10/2023 Ambulatory Visit Instructions Your Care Team Attending Physician - J CARLOS ENRIQUE, Bhavik Dhaliwal Primary Care Physician - Vickie ENRIQUE, Ibeth Referring Physician - Ibeth Johnston MD This Is Your Medications List Contact prescribing physician if questions or concerns amphetamine-dextroamp hetamine (Adderall 10 mg oral tablet) terbinafine (terbinafine 250 mg Tab) Procedures Performed None. Discharge Vitals Heart Rate (Peripheral) 72 Respiratory Rate 16 Blood Pressure 118/84 Height 177.8 cm Height 70 in Weight 81.9 kg Weight 180.18 lb BMI 25.91 Medications What How Much When Instructions Unchanged amphetamine-dextroamp hetamine (Adderall 10 mg oral tablet) 1 Tablets [...] you for choosing us for your care. [facility] Insurance Correspondence Off iceon 04-14-2023 Insurance Correspondence Office [id number] .00TIFF Normal [facility] Physician Referralon 023 Physician Referral [id number] .00TIFF Normal [facility] Physician Referral [id number] .00TIFF Normal [facility] Physician Referralon 023 Physician Referral [id number] .00CD:127 Normal [facility] CULTURE URINEon 04-05-2022 CULTURE URINE Culture Observations : NO GROWTH. Normal [facility] Comment on above: Performed By: #### U RCX #### [facility] [address] [place] [address] Dr. Candido Post UA RANDOM W/MICROSCOPICon BACTERIA TRACE Abnormal NONE SEEN [facility] Comment on above: Performed By: #### U AMIC #### [facility] [address] [place] [address] Dr. Candido Post Bilirubin Ql (U) Negative Normal NEGATIVE [facility] Comment on above: Performed By: #### U AMIC #### [facility] [address] [place] [address] Dr. Candido Post CAST NONE SEEN Normal NONE SEEN [facility] Comment on above: Performed By: #### U AMIC #### [facility] [address] [place] [address] Dr. Candido Post Clarity (U) SL CLOUDY Abnormal CLEAR [facility] Comment on above: Performed By: #### U AMIC #### [facility] [address] [place] [address] Dr. Candido Post Color (U) LT. YELLOW Normal YELLOW [facility] Comment on above: Performed By: #### U AMIC #### [facility] [address] [place] [address] Dr. Candido Post Crystals LM Nom (Urine sed) NONE SEEN Normal NONE SEEN [facility] Comment on above: Performed By: #### U AMIC #### [facility] [address] [address] [address] Candido Post Epithelial cells LM Ql (Urine sed) RARE Normal NONE SEEN /RARE [facility] Comment on above: Performed By: #### U AMIC #### [facility] [address] [address] [address] Candido Post Glucose Ql (U) Negative Normal NEGATIVE [facility] Comment on above: Performed By: #### U AMIC #### [facility] [address] [address] [address] Candido Post Hemoglobin Ql (U) Negative Normal NEGATIVE [facility] Comment on above: Performed By: #### U AMIC #### [facility] [address] [place] [address] Dr. Candido Post Ketones Ql (U) Negative Normal NEGATIVE [facility] Comment on above: Performed By: #### U AMIC #### [facility] [address] [address] [address] Candido Post LEUKOCYTES Negative Normal NEGATIVE [facility] Comment on above: Performed By: #### U AMIC #### [facility] [address] [address] [address] Candido Post MUCOUS NONE SEEN Normal NONE SEEN [facility] Comment on above: Performed By: #### U AMIC #### [facility] [address] [address] [address] Candido Post Nitrite Ql (U) Negative Normal NEGATIVE [facility] Comment on above: Performed By: #### U AMIC #### [facility] [address] [address] [address] Candido Post pH (U) 6.5 [pH] Normal 5-9 [facility] Comment on above: Performed By: #### U AMIC #### [facility] [address] [address] [address] Candido Post RBC 0-2 Normal 0-2 [facility] Comment on above: Performed By: #### U AMIC #### [facility] [address] [place] [address] Dr. Candido Post SPEC GRAVITY <=1.005 Abnormal 1.005-<=1.025 [facility] Comment on above: Performed By: #### U AMIC #### [facility] [address] [place] [address] Dr. Candido Post UA PROTEIN Negative Normal NEGATIVE/ TRACE The [facility] Comment on above: Performed By: #### U AMIC #### [facility] [address] [place] [address] Dr. Candido Post Urobilinogen Qn (U) 0.2 {Stephan'U}/dL Normal 0.2 - 1. 0 [facility] Comment on above: Performed By: #### U AMIC #### [facility] [address] [place] [address] Dr. Candido Post WBC NONE SEEN Normal NONE SEEN [facility] Comment on above: Performed By: #### U AMIC #### [facility] [address] [place] [address] Dr. Candido Post CBC AUTO DIFFon 02-10-2022 BASO # 0.0 103/ul Normal 0.0-0.1 [facility] Comment on above: Performed By: #### C BC #### [facility] [address] [place] [address] Dr. Candido Post Basophils/100 WBC (Bld) 0.4 % Normal 0.2-2.0 [facility] Comment on above: Performed By: #### C BC #### [facility] [address] [place] [address] Dr. Candido Post EO # 0.3 103/ul Normal 0.0-0.7 [facility] Comment on above: Performed By: #### C BC #### [facility] [address] [place] [address] Dr. Candido Post Eosinophils/100 WBC (Bld) 2.3 % Normal 0.9-7.0 [facility] Comment on above: Performed By: #### C BC #### [facility] [address] [place] [address] Dr. Candido Post Erythrocyte distribution width (RBC) [Ratio] 12.0 % Normal 11.0-15.0 [facility] Comment on above: Performed By: #### C BC #### [facility] [address] [place] [address] Dr. Candido Post Hematocrit (Bld) [Volume fraction] 40.2 % Normal 36.0-48.0 [facility] Comment on above: Performed By: #### C BC #### [facility] [address] [place] [address] Dr. Candido Post Hemoglobin (Bld) [Mass/Vol] 13.9 g/dL Normal 12.0-16.0 [facility] Comment on above: Performed By: #### C BC #### [facility] [address] [place] [address] Dr. Candido Post IG # 0.02 10e3/ul Normal 0.00-0.03 [facility] Comment on above: Performed By: #### C BC #### [facility] [address] [place] [address] Dr. Candido Post IG % 0.2 % Normal 0.0-0.5 [facility] Comment on above: Performed By: #### C BC #### [facility] [address] [place] [address] Dr. Candido Post LYMPH # 4.2 103/ul Critically high 1.2-3.[address] [facility] Comment on above: Performed By: #### C BC #### [facility] [address] [place] [address] Dr. Candido Post Lymphocytes/100 WBC (Bld) 39.0 % Normal 20.5-60.0 [facility] Comment on above: Performed By: #### C BC #### [facility] [address] [place] [address] Dr. Candido Post MANUAL DIFF REQ NO Normal [facility] Comment on above: Performed By: #### C BC #### [facility] [address] [place], [place] [id number] Dr. Candido Post MCH (RBC) [Entitic mass] 32.7 pg Normal 26.7-34.0 [facility] Comment on above: Performed By: #### C BC #### [facility] [address] [place] [address] Dr. Candido Post MCHC (RBC) [Mass/Vol] 34.6 g/dL Normal 29.9-35.2 [facility] Comment on above: Performed By: #### C BC #### [facility] [address] [place] [address] Dr. Candido Post MCV (RBC) [Entitic vol] 94.6 fL Normal 81.0-99.0 [facility] Comment on above: Performed By: #### C BC #### [facility] [address] [place] [address] Dr. Candido Post MONO # 0.6 103/ul Normal 0.3-0.8 [facility] Comment on above: Performed By: #### C BC #### [facility] [address] [place] [address] Dr. Candido Post Monocytes/100 WBC (Bld) 5.7 % Normal 1.7-12.0 [facility] Comment on above: Performed By: #### C BC #### [facility] [address] [place] [address] Dr. Candido Post NEUT # 5.6 103/ul Normal 1.4-6.5 [facility] Comment on above: Performed By: #### C BC #### [facility] [address] [place] [address] Dr. Candido Post Neutrophils/100 WBC (Bld) 52.4 % Normal 43.0-75.0 [facility] Comment on above: Performed By: #### C BC #### [facility] [address] [place] [address] Dr. Candido Post Platelet mean volume (Bld) [Entitic vol] 9.9 fL Normal 9.5-13.5 [facility] Comment on above: Performed By: #### C BC #### [facility] [address] [address] [address] Candido Post PLT 255 103/ul Normal 150-450 [facility] Comment on above: Performed By: #### C BC #### [facility] [address] [address] [address] Candido Post RBC 4.25 106/ul Normal 4.20-5.40 [facility] Comment on above: Performed By: #### C BC #### [facility] [address] [id number] [address] Candido Post WBC 10.7 103/ul Normal 4.0-11.0 [facility] Comment on above: Performed By: #### C BC #### [facility] [address] [address] [address] ABD/PELVIS WO CONon [...] as clinically indicated. Electronically authenticated by: LISA PITTS Date: 2022-02-10 00:55 Normal [facility] CULTURE URINEon 02-10-2022 CULTURE URINE Culture Observations : NO GROWTH. Normal [facility] Comment on above: Performed By: #### U RCX #### [facility] [address] [place] [address] Dr. Candido Post ER URINE PROFILEon 2 Bilirubin Ql (U) Negative Normal NEGATIVE [facility] Comment on above: Performed By: #### Clay HOLGUIN UMICRO #### [facility] [address] [place] [address] Dr. Candido Post Clarity (U) CLEAR Normal CLEAR [facility] Comment on above: Performed By: #### Clay HOLGUIN UMICRO #### [facility] [address] [place] [address] Dr. Candido Post Color (U) LT. YELLOW Normal YELLOW [facility] Comment on above: Performed By: #### Clay HOLGUIN UMICRO #### [facility] [address] [place] [address] Dr. Candido SANDERS A micrscopic examination will be performed if indicated. Normal [facility] Comment on above: Performed By: #### Clay HOLGUIN UMICRO #### [facility] [address] [place] [address] Dr. Candido Post Glucose Ql (U) Negative Normal NEGATIVE [facility] Comment on above: Performed By: #### Clay HOLGUIN UMICRO #### [facility] [address] [place] [address] Dr. Candido Post Hemoglobin Ql (U) MODERATE Abnormal NEGATIVE [facility] Comment on above: Performed By: #### MARGARET MORRISSEYICRO #### [facility] [address] [place] [address] Dr. Candido Post Ketones Ql (U) Negative Normal NEGATIVE [facility] Comment on above: Performed By: #### MARGARET MORRISSEYICRO #### [facility] [address] [place] [address] Dr. Candido Post LEUKOCYTES Negative Normal NEGATIVE [facility] Comment on above: Performed By: #### Clay HOLGUIN UMICRO #### [facility] [address] [place] [address] Dr. Candido Post Nitrite Ql (U) Negative Normal NEGATIVE [facility] Comment on above: Performed By: #### Clay HOLGUIN UMICRO #### [facility] [address] [place] [address] Dr. Candido Post pH (U) 6.0 [pH] Normal 5-9 [facility] Comment on above: Performed By: #### Clay HOLGUIN UMICRO #### [facility] [address] [place] [address] Dr. Candido Post SPEC GRAVITY >=1.030 Abnormal 1.005-<=1.025 [facility] Comment on above: Performed By: #### Clay HOLGUIN UMICRO #### [facility] [address] [place] [address] Dr. Candido Post UA PROTEIN Negative Normal NEGATIVE/ TRACE [facility] Comment on above: Performed By: #### Clay HOLGUIN UMICRO #### [facility] [address] [place] [address] Dr. Candido Post UR MICRO IND INDICATED Normal [facility] Comment on above: Performed By: #### Clay HOLGUIN UMICRO #### [facility] [address] [place] [address] Dr. Candido Post Urobilinogen Qn (U) 0.2 {Stephan'U}/dL Normal 0.2 - 1. 0 [facility] Comment on above: Performed By: #### Clay HOLGUIN UMICRO #### [facility] [address] [place] [address] Dr. Candido Post PROF 14(COMP METB)on 022 Albumin [Mass/Vol] 3.8 g/dL Normal 3.4-5.0 [facility] Comment on above: Performed By: #### C MP #### [facility] [address] [place] [address] Dr. Candido Pots Albumin/Globulin [Mass ratio] 1.2 {ratio} Normal [facility] Comment on above: Performed By: #### C MP #### [facility] [address] [place] [address] Dr. Candido Post ALP [Catalytic activity/Vol] 64 U/L Normal 46-116 [facility] Comment on above: Performed By: #### C MP #### [facility] [address] [address] [address] Candido Post ALT [Catalytic activity/Vol] 26 U/L Normal 14-59 [facility] Comment on above: Performed By: #### C MP #### [facility] [address] [address] [address] Candido Post Anion gap [Moles/Vol] 13.2 mmol/L Normal [facility] Comment on above: Performed By: #### C MP #### [facility] [address] [address] [address] Candido Post AST [Catalytic activity/Vol] 14 U/L Critically low 15-37 [facility] Comment on above: Performed By: #### C MP #### [facility] [address] [address] [address] Candido Post Bilirubin [Mass/Vol] 0.3 mg/dL Normal 0.2-1.0 [facility] Comment on above: Performed By: #### C MP #### [facility] [address] [address] [address] Candido Post Calcium [Mass/Vol] 9.5 mg/dL Normal 8.5-10.1 [facility] Comment on above: Performed By: #### C MP #### [facility] [address] [address] [address] Candido Post Chloride [Moles/Vol] 104 mmol/L Normal 98-107 [facility] Comment on above: Performed By: #### C MP #### [facility] [address] [address] [address] Candido Post CO2 [Moles/Vol] 25.6 mmol/L Normal 21.0-32.0 [facility] Comment on above: Performed By: #### C MP #### [facility] [address] [address] [address] Candido Post Creatinine [Mass/Vol] 0.82 mg/dL Normal 0.55-1.02 [facility] Comment on above: Performed By: #### C MP #### [facility] [address] [address] [address] Candido Post EGFR-AF NIGERIEN >60 Normal >=60 [facility] Comment on above: Performed By: #### C MP #### [facility] [address] [address] [address] Candido Post EGFR-NON AF NIGERIEN >60 Normal >=60 [facility] Comment on above: Performed By: #### C MP #### [facility] [address] [address] [address] Candido Post Globulin (S) [Mass/Vol] 3.2 g/dL Normal [facility] Comment on above: Performed By: #### C MP #### [facility] [address] [address] [address] Candido Post Glucose [Mass/Vol] 116 mg/dL Critically high 74-106 [facility] Comment on above: Performed By: #### C MP #### [facility] [address] [address] [address] Candido Post Potassium [Moles/Vol] 3.8 mmol/L Normal 3.5-5.1 [facility] Comment on above: Performed By: #### C MP #### [facility] [address] [address] [address] Cadnido Post Protein [Mass/Vol] 7.0 g/dL Normal 6.4-8.2 [facility] Comment on above: Performed By: #### C MP #### [facility] [address] [address] [address] Candido Post Sodium [Moles/Vol] 139 mmol/L Normal 136-145 [facility] Comment on above: Performed By: #### C MP #### [facility] [address] [address] [address] Candido Post Urea nitrogen [Mass/Vol] 14.0 mg/dL Normal 7.0-18.0 [facility] Comment on above: Performed By: #### C MP #### [facility] [address] [place] [address] Dr. Candido Post Urea nitrogen/Creatinine [Mass ratio] 17.1 mg/mg Normal [facility] Comment on above: Performed By: #### C MP #### [facility] [address] [place] [address] Dr. Candido Post URINE MICROSCOPIC ONLYon BACTERIA SMALL Abnormal NONE SEEN [facility] Comment on above: Performed By: #### Clay HOLGUIN UMICRO #### [facility] [address] [place] [address] Dr. Candido Post Bacteria identified Cx Nom (U) INDICATED Normal [facility] Comment on above: Performed By: #### E CHELSIE UMICRO #### [facility] [address] [place] [address] Dr. Candido Post CAST NONE SEEN Normal NONE SEEN [facility] Comment on above: Performed By: #### Clay HOLGUIN UMICRO #### [facility] [address] [place] [address] Dr. Candido Post Crystals LM Nom (Urine sed) SEEN Abnormal NONE SEEN [facility] Comment on above: Performed By: #### Clay HOLGUIN UMICRO #### [facility] [address] [place] [address] Dr. Candido Post Epithelial cells LM Ql (Urine sed) MODERATE Abnormal NONE SEEN /RARE [facility] Comment on above: Performed By: #### Clay HOLGUIN UMICRO #### [facility] [address] [place] [address] Dr. Candido Post MUCOUS NONE SEEN Normal NONE SEEN [facility] Comment on above: Performed By: #### E RUMadhuri UMICRO #### [facility] [address] [place] [address] Dr. Candido Post RBC 2-5 Abnormal 0-2 [facility] Comment on above: Performed By: #### E RUMadhuri UMICRO #### [facility] [address] [place] [address] Dr. Candido Post URIC ACID CRYSTALS RARE Normal [facility] Comment on above: Performed By: #### E MARIE HOLGUIN #### [facility] [address] [address] [address] Candido Post WBC 0-2 Abnormal NONE SEEN [facility] Comment on above: Performed By: #### E MARIE HOLGUIN #### [facility] [address] [address] [address] Candido Post HERPES SIMPLEX 1/2 IGGon HSV 1 IgG, Type Spec 9.66 index Critically high 0.00-0.90 [facility] Comment on above: Result Comment: Nega tive <0.91 Equivocal 0.91 - 1.09 Positive >1.09 Note: Negative indicates no antibodies detected to HSV-1. Equivocal may suggest early infection. If clinically appropriate, retest at later date. Positive indicates antibodies detected to HSV-1. Performed By: #### H SV IGG #### [facility] [address] [address] [address] Candido Post HSV 2 IgG Type Spec <0.91 Normal 0.00-0.90 [facility] Comment on above: Result Comment: Nega tive <0.91 Equivocal 0.91 - 1.09 Positive >1.09 Note: Negative indicates no antibodies detected to HSV-2. Equivocal may suggest early infection. If clinically appropriate, retest at later date. Positive indicates antibodies detected to HSV-2. Performed By: #### H SV IGG #### [facility] [address] [place] [address] Dr. Candido Post Encounters Encounter Date Encounter Type Care Provider Facility Start: 06-07-2023 End: 07-08-2023 ambulatory Bhavik WHITMAN Facility:[id number] Start: 05-10-2023 End: 05-11-2023 ambulatory Bhavik WHITMAN Facility:[facility] Start: 04-13-2023 ambulatory Bhavik WHITMAN Facility:[facility] Start: 04-05-2022 End: 04-06-[address] IBETH JOHNSTON Facility: Start: 02-10-2022 End: 02-10-[address] IBETH JOHNSTON Facility:[facility] Start: 05-19-2021 End: 05-20-[address] DOCTOR NOLASCO Facility:[facility] Payers Date Payer Category Payer Unknown [id number] 2.16.84 [id number] 1980 Unknown [id number] 2.16.84 [id number] 1980 Unknown [id number] 2.16.84 [id number] 1980 Unknown [id number] 2.16.8 [id number] 1979 Unknown [id number] 2.16.8 [id number] 1959 Unknown [id number] Clinical Note 05-11-2023 Note Date & Type Note Facility 05-11-2023 Note Chief Complaint consultation for hemorrhoids HPI Staff 43 year old female presents on consultation from Dr. Johnston for hemorrhoids. Starting November of this year, [...] Father. Heart d (more content not included)... [facility] Comment on above: Result Comment: Elec [...] [place] DATE CREATED AUTHOR AUTHOR'S ORGANIZ ATION 07/11/2023 [facility] FOR RECORDS PERTAINING TO PATIENTS [...] BE BASED ON THE PRIMARY CLINICAL RECORDS. [facility]. provides no warranty or guarantee of the accuracy or completeness of information in this document.
[2024-04-19 12:08] LABS: Basophils Percent Auto 0.3 % (0.2-2.0); Eosinophils Absolute Auto 0.1 10^3/uL (0.0-0.7); Eosinophils Percent Auto 1.5 % (0.9-7.0); Hematocrit 43.1 % (36.0-48.0); Hemoglobin 14.7 g/dL (12.0-16.0); Immature Granulocytes Abs Auto 0.01 10^3/uL (0.00-0.03); Immature Granulocytes Pct Auto 0.1 % (0.0-0.5); Lymphocytes Absolute Auto 2.5 10^3/uL (1.2-3.8); Lymphocytes Percent Auto 33.6 % (20.5-60.0); Mean Corpuscular HGB Conc 34.1 g/dL (29.9-35.2); Mean Corpuscular Hemoglobin 32.9 pg (26.7-34.0); Mean Corpuscular Volume 96.4 fL (81.0-99.0); Mean Platelet Volume 10.1 fL (9.5-13.5); Monocytes Absolute Auto 0.3 10^3/uL (0.3-0.8); Monocytes Percent Auto 4.5 % (1.7-12.0); Neutrophils Absolute Auto 4.5 10^3/uL (1.4-6.5); Platelet Count 276 10^3/uL (150-450); Red Blood Count 4.47 10^6/uL (4.20-5.40); Red Cell Distribution Width 11.5 % (11.0-15.0); White Blood Count 7.5 10^3/uL (4.0-11.0)
[2024-04-19 12:15] LABS: Estimated Average Glucose 94 mg/dL; Glycohemoglobin A1C 4.9 % (4.5-6.2)
[2024-04-19 12:54] LABS: Alanine Aminotransferase 37 U/L (14-59); Albumin Level 3.8 g/dL (3.4-5.0); Alkaline Phosphatase 67 U/L (46-116); Anion Gap 12.5; Aspartate Amino Transferase 21 U/L (15-37); BUN Creatinine Ratio 11.4; Bilirubin Total 0.6 mg/dL (0.2-1.0); Calcium 9.4 mg/dL (8.5-10.1); Carbon Dioxide 24.9 mmol/L (21.0-32.0); Chloride 101 mmol/L (98-107); Chol HDL Ratio 3.4; Cholesterol 209 mg/dL (<=200); Estimated GFR (African America >60 (>=60 mL/min/1.73m^2); Estimated GFR (Non-African Ame >60 (>=60 mL/min/1.73m^2); Globulin 3.7 g/dL; Glucose 85 mg/dL (74-106); HDL Cholesterol 61 mg/dL (40-60); Potassium 3.4 mmol/L (3.5-5.1); Sodium 135 mmol/L (136-145); Total Protein 7.5 g/dL (6.4-8.2); Triglycerides 112 mg/dL (<=150); VLDL CHOLESTEROL 22.4 mg/dL
[2024-04-20 04:10] LABS: FSH 10.2 mIU/mL (.)
== END 2024-04-19 11:42 | disposition home or self-care (01) ==
LOC: LAB 11:41
PROVIDERS: PCP Family Medicine; Visit Provider Family Medicine
DX: Z00.00 Encounter for general adult medical examination without abnormal findings (principal); G56.21 Lesion of ulnar nerve, right upper limb
CPT/HCPCS: 36415; 80053; 80061; 83001; 83036; 85025

== ENCOUNTER 2024-04-23 09:49 | Outpatient (OUT) | payer OTHER, SELFPAY ==
--- OUTSIDE RECORDS SUMMARY | 2024-04-23 09:55 | XMS_ITS | CCD ---
Author Organization [facility] Care Team Providers Care Government Guard Name Role Phone VICKIE, DR CRISTINA Primary [...] Medication Allergies] Propensity to adverse reactions (disorder) [facility] Repository Problems Active Problems Problem Classification [...] Facil ity Outside Colonoscopyon 2022 Outside Colonoscopy [id number] .00TIFF [facility] Reminderson 06-08-2023 Reminders - From: Jessica Ann LPN To: [facility] - Clinical; Sent: 06/08/2023 11:48:40 EST Show up: 05/07/2033 07:00:00 EDT Subject: colonoscopy recall Due Date/Time: 06/07/2033 07:00:00 EST Reminder/Recall Patient due for screening colonoscopy 06/07/2033. [facility] Lab Reportson 06-07-2023 Lab Reports [id number] .00TIFF [facility] Consent for Procedure/Surger yon 05-11-2023 Consent for Procedure/Surgery [id number] .00TIFF [facility] Facesheeton 05-11-2023 Facesheet [id number] .00TIFF [facility] Ambulatory Visit Summaryon 1 07-10-2022 Ambulatory Visit [...] you for choosing us for your care. [facility] Ambulatory Visit Summary SHANNAN CARRION :1980 Visit [...] you for choosing us for your care. [facility] Insurance Correspondence Off iceon 04-14-2023 Insurance Correspondence Office [id number] .00TIFF Normal [facility] Physician Referralon 023 Physician Referral [id number] .00TIFF Normal [facility] Physician Referral [id number] .00TIFF Normal [facility] Physician Referralon 023 Physician Referral [id number] .00CD:127 Normal [facility] CULTURE URINEon 04-05-2022 CULTURE URINE Culture Observations : NO GROWTH. Normal [facility] Comment on above: Performed By: #### U RCX #### [facility] [address] [place] [address] Dr. Candido Post UA RANDOM W/MICROSCOPICon BACTERIA TRACE Abnormal NONE SEEN [facility] Comment on above: Performed By: #### U AMIC #### [facility] [address] [place] [address] Dr. Candido Post Bilirubin Ql (U) Negative Normal NEGATIVE [facility] Comment on above: Performed By: #### U AMIC #### [facility] [address] [place] [address] Dr. Candido Post CAST NONE SEEN Normal NONE SEEN [facility] Comment on above: Performed By: #### U AMIC #### [facility] [address] [place] [address] Dr. Candido Post Clarity (U) SL CLOUDY Abnormal CLEAR [facility] Comment on above: Performed By: #### U AMIC #### [facility] [address] [place] [address] Dr. Candido Post Color (U) LT. YELLOW Normal YELLOW [facility] Comment on above: Performed By: #### U AMIC #### [facility] [address] [place] [address] Dr. Candido Post Crystals LM Nom (Urine sed) NONE SEEN Normal NONE SEEN [facility] Comment on above: Performed By: #### U AMIC #### [facility] [address] [address] [address] Candido Post Epithelial cells LM Ql (Urine sed) RARE Normal NONE SEEN /RARE [facility] Comment on above: Performed By: #### U AMIC #### [facility] [address] [address] [address] Candido Post Glucose Ql (U) Negative Normal NEGATIVE [facility] Comment on above: Performed By: #### U AMIC #### [facility] [address] [address] [address] Candido Post Hemoglobin Ql (U) Negative Normal NEGATIVE [facility] Comment on above: Performed By: #### U AMIC #### [facility] [address] [place] [address] Dr. Candido Post Ketones Ql (U) Negative Normal NEGATIVE [facility] Comment on above: Performed By: #### U AMIC #### [facility] [address] [address] [address] Candido Post LEUKOCYTES Negative Normal NEGATIVE [facility] Comment on above: Performed By: #### U AMIC #### [facility] [address] [address] [address] Candido Post MUCOUS NONE SEEN Normal NONE SEEN [facility] Comment on above: Performed By: #### U AMIC #### [facility] [address] [address] [address] Candido Post Nitrite Ql (U) Negative Normal NEGATIVE [facility] Comment on above: Performed By: #### U AMIC #### [facility] [address] [address] [address] Candido Post pH (U) 6.5 [pH] Normal 5-9 [facility] Comment on above: Performed By: #### U AMIC #### [facility] [address] [address] [address] Candido Post RBC 0-2 Normal 0-2 [facility] Comment on above: Performed By: #### U AMIC #### [facility] [address] [place] [address] Dr. Candido Post SPEC GRAVITY <=1.005 Abnormal 1.005-<=1.025 [facility] Comment on above: Performed By: #### U AMIC #### [facility] [address] [place] [address] Dr. Candido Post UA PROTEIN Negative Normal NEGATIVE/ TRACE [facility] Comment on above: Performed By: #### U AMIC #### [facility] [address] [place] [address] Dr. Candido Post Urobilinogen Qn (U) 0.2 {Stephan'U}/dL Normal 0.2 - 1. 0 [facility] Comment on above: Performed By: #### U AMIC #### [facility] [address] [place] [address] Dr. Candido Post WBC NONE SEEN Normal NONE SEEN [facility] Comment on above: Performed By: #### U AMIC #### [facility] [address] [place] [address] Dr. Candido Post CBC AUTO DIFFon 02-10-2022 BASO # 0.0 103/ul Normal 0.0-0.1 [facility] Comment on above: Performed By: #### C BC #### [facility] [address] [place] [address] Dr. Candido Post Basophils/100 WBC (Bld) 0.4 % Normal 0.2-2.0 [facility] Comment on above: Performed By: #### C BC #### [facility] [address] [place] [address] Dr. Candido Post EO # 0.3 103/ul Normal 0.0-0.7 [facility] Comment on above: Performed By: #### C BC #### [facility] [address] [place] [address] Dr. Candido Post Eosinophils/100 WBC (Bld) 2.3 % Normal 0.9-7.0 [facility] Comment on above: Performed By: #### C BC #### [facility] [address] [place] [address] Dr. Candido Post Erythrocyte distribution width (RBC) [Ratio] 12.0 % Normal 11.0-15.0 [facility] Comment on above: Performed By: #### C BC #### [facility] [address] [place] [address] Dr. Candido Post Hematocrit (Bld) [Volume fraction] 40.2 % Normal 36.0-48.0 [facility] Comment on above: Performed By: #### C BC #### [facility] [address] [place] [address] Dr. Candido Post Hemoglobin (Bld) [Mass/Vol] 13.9 g/dL Normal 12.0-16.0 [facility] Comment on above: Performed By: #### C BC #### [facility] [address] [place] [address] Dr. Candido Post IG # 0.02 10e3/ul Normal 0.00-0.03 [facility] Comment on above: Performed By: #### C BC #### [facility] [address] [place] [address] Dr. Candido Post IG % 0.2 % Normal 0.0-0.5 [facility] Comment on above: Performed By: #### C BC #### [facility] [address] [place] [address] Dr. Candido Post LYMPH # 4.2 103/ul Critically high 1.2-3.8 [facility] Comment on above: Performed By: #### C BC #### [facility] [address] [place] [address] Dr. Candido Post Lymphocytes/100 WBC (Bld) 39.0 % Normal 20.5-60.0 [facility] Comment on above: Performed By: #### C BC #### [facility] [address] [place] [address] Dr. Candido Post MANUAL DIFF REQ NO Normal [facility] Comment on above: Performed By: #### C BC #### [facility] [address] [place], [place] [id number] Dr. Candido Post MCH (RBC) [Entitic mass] 32.7 pg Normal 26.7-34.0 [facility] Comment on above: Performed By: #### C BC #### [facility] [address] [place] [address] Dr. Candido Post MCHC (RBC) [Mass/Vol] 34.6 g/dL Normal 29.9-35.2 [facility] Comment on above: Performed By: #### C BC #### [facility] [address] [place] [address] Dr. Candido Post MCV (RBC) [Entitic vol] 94.6 fL Normal 81.0-99.0 [facility] Comment on above: Performed By: #### C BC #### [facility] [address] [place] [address] Dr. Candido Post MONO # 0.6 103/ul Normal 0.3-0.8 [facility] Comment on above: Performed By: #### C BC #### [facility] [address] [place] [address] Dr. Candido Post Monocytes/100 WBC (Bld) 5.7 % Normal 1.7-12.0 [facility] Comment on above: Performed By: #### C BC #### [facility] [address] [place] [address] Dr. Candido Post NEUT # 5.6 103/ul Normal 1.4-6.5 [facility] Comment on above: Performed By: #### C BC #### [facility] [address] [place] [address] Dr. Candido Post Neutrophils/100 WBC (Bld) 52.4 % Normal 43.0-75.0 [facility] Comment on above: Performed By: #### C BC #### [facility] [address] [place] [address] Dr. Candido Post Platelet mean volume (Bld) [Entitic vol] 9.9 fL Normal 9.5-13.5 [facility] Comment on above: Performed By: #### C BC #### [facility] [address] [address] [address] Candido Post PLT 255 103/ul Normal 150-450 [facility] Comment on above: Performed By: #### C BC #### [facility] [address] [address] [address] Candido Post RBC 4.25 106/ul Normal 4.20-5.40 [facility] Comment on above: Performed By: #### C BC #### [facility] [address] [id number] Candido Post WBC 10.7 103/ul Normal 4.0-11.0 [facility] Comment on above: Performed By: #### C BC #### [facility] [address] [address] [address] ABD/PELVIS WO CONon [...] LISA PITTS Date: 2022-02-10 00:55 Normal [facility] CULTURE URINEon 02-10-2022 CULTURE URINE Culture Observations : NO GROWTH. Normal [facility] Comment on above: Performed By: #### U RCX #### [facility] [address] [place] [address] Dr. Candido Post ER URINE PROFILEon 2 Bilirubin Ql (U) Negative Normal NEGATIVE [facility] Comment on above: Performed By: #### Clay HOLGUIN UMICRO #### [facility] [address] [place] [address] Dr. Candido Post Clarity (U) CLEAR Normal CLEAR [facility] Comment on above: Performed By: #### Clay HOLGUIN UMICRO #### [facility] [address] [place] [address] Dr. Candido Post Color (U) LT. YELLOW Normal YELLOW [facility] Comment on above: Performed By: #### Clay HOLGUIN UMICRO #### [facility] [address] [place] [address] Dr. Candido SANDERS A micrscopic examination will be performed if indicated. Normal [facility] Comment on above: Performed By: #### Clay HOLGUIN UMICRO #### [facility] [address] [place] [address] Dr. Candido Post Glucose Ql (U) Negative Normal NEGATIVE [facility] Comment on above: Performed By: #### Clay HOLGUIN UMICRO #### [facility] [address] [place] [address] Dr. Candido Post Hemoglobin Ql (U) MODERATE Abnormal NEGATIVE [facility] Comment on above: Performed By: #### MARGARET MORRISSEYICRO #### [facility] [address] [place] [address] Dr. Candido Post Ketones Ql (U) Negative Normal NEGATIVE [facility] Comment on above: Performed By: #### MARGARET MORRISSEYICRO #### [facility] [address] [place] [address] Dr. Candido Post LEUKOCYTES Negative Normal NEGATIVE [facility] Comment on above: Performed By: #### Clay HOLGUIN UMICRO #### [facility] [address] [place] [address] Dr. Candido Post Nitrite Ql (U) Negative Normal NEGATIVE [facility] Comment on above: Performed By: #### Clay HOLGUIN UMICRO #### [facility] [address] [place] [address] Dr. Candido Post pH (U) 6.0 [pH] Normal 5-9 [facility] Comment on above: Performed By: #### Clay HOLGUIN UMICRO #### [facility] [address] [place] [address] Dr. Candido Post SPEC GRAVITY >=1.030 Abnormal 1.005-<=1.025 [facility] Comment on above: Performed By: #### Clay HOLGUIN UMICRO #### [facility] [address] [place] [address] Dr. Candido Post UA PROTEIN Negative Normal NEGATIVE/ TRACE [facility] Comment on above: Performed By: #### Clay HOLGUIN UMICRO #### [facility] [address] [place] [address] Dr. Candido Post UR MICRO IND INDICATED Normal [facility] Comment on above: Performed By: #### Clay HOLGUIN UMICRO #### [facility] [address] [place] [address] Dr. Candido Post Urobilinogen Qn (U) 0.2 {Stephan'U}/dL Normal 0.2 - 1. 0 [facility] Comment on above: Performed By: #### Clay HOLGUIN UMICRO #### [facility] [address] [place] [address] Dr. Candido Post PROF 14(COMP METB)on 022 Albumin [Mass/Vol] 3.8 g/dL Normal 3.4-5.[address] [facility] Comment on above: Performed By: #### C MP #### [facility] [address] [place] [address] Dr. Candido Post Albumin/Globulin [Mass ratio] 1.2 {ratio} Normal [facility] Comment on above: Performed By: #### C MP #### [facility] [address] [place] [address] Dr. Candido Post ALP [Catalytic activity/Vol] 64 U/L Normal 46-116 [facility] Comment on above: Performed By: #### C MP #### [facility] [address] [address] [address] Candido Post ALT [Catalytic activity/Vol] 26 U/L Normal 14-59 [facility] Comment on above: Performed By: #### C MP #### [facility] [address] [address] [address] Candido Post Anion gap [Moles/Vol] 13.2 mmol/L Normal [facility] Comment on above: Performed By: #### C MP #### [facility] [address] [address] [address] Candido Post AST [Catalytic activity/Vol] 14 U/L Critically low 15-37 [facility] Comment on above: Performed By: #### C MP #### [facility] [address] [address] [address] Candido Post Bilirubin [Mass/Vol] 0.3 mg/dL Normal 0.2-1.0 [facility] Comment on above: Performed By: #### C MP #### [facility] [address] [address] [address] Candido Post Calcium [Mass/Vol] 9.5 mg/dL Normal 8.5-10.[address] [facility] Comment on above: Performed By: #### C MP #### [facility] [address] [address] [address] Candido Post Chloride [Moles/Vol] 104 mmol/L Normal 98-107 [facility] Comment on above: Performed By: #### C MP #### [facility] [address] [address] [address] Candido Post CO2 [Moles/Vol] 25.6 mmol/L Normal 21.0-32.0 [facility] Comment on above: Performed By: #### C MP #### [facility] [address] [address] [address] Candido Post Creatinine [Mass/Vol] 0.82 mg/dL Normal 0.55-1.02 [facility] Comment on above: Performed By: #### C MP #### [facility] [address] [address] [address] Candido Post EGFR-AF DOMINICAN >60 Normal >=60 [facility] Comment on above: Performed By: #### C MP #### [facility] [address] [address] [address] Candido Post EGFR-NON AF DOMINICAN >60 Normal >=60 [facility] Comment on above: Performed By: #### C MP #### [facility] [address] [address] [address] Candido Post Globulin (S) [Mass/Vol] 3.2 g/dL Normal [facility] Comment on above: Performed By: #### C MP #### [facility] [address] [address] [address] Candido Post Glucose [Mass/Vol] 116 mg/dL Critically high 74-106 [facility] Comment on above: Performed By: #### C MP #### [facility] [address] [address] [address] Candido Post Potassium [Moles/Vol] 3.8 mmol/L Normal 3.5-5.1 [facility] Comment on above: Performed By: #### C MP #### [facility] [address] [address] [address] Candido Post Protein [Mass/Vol] 7.0 g/dL Normal 6.4-8.2 [facility] Comment on above: Performed By: #### C MP #### [facility] [address] [address] [address] Candido Post Sodium [Moles/Vol] 139 mmol/L Normal 136-145 [facility] Comment on above: Performed By: #### C MP #### [facility] [address] [address] [address] Candido Post Urea nitrogen [Mass/Vol] 14.0 mg/dL Normal 7.0-18.0 [facility] Comment on above: Performed By: #### C MP #### [facility] [address] [place] [address] Dr. Candido Post Urea nitrogen/Creatinine [Mass ratio] 17.1 mg/mg Normal [facility] Comment on above: Performed By: #### C MP #### [facility] [address] [place] [address] Dr. Candido Post URINE MICROSCOPIC ONLYon BACTERIA SMALL Abnormal NONE SEEN [facility] Comment on above: Performed By: #### Clay HOLGUIN UMICRO #### [facility] [address] [place] [address] Dr. Candido Post Bacteria identified Cx Nom (U) INDICATED Normal [facility] Comment on above: Performed By: #### E CHELSIE UMICRO #### [facility] [address] [place] [address] Dr. Candido Post CAST NONE SEEN Normal NONE SEEN [facility] Comment on above: Performed By: #### Clay HOLGUIN UMICRO #### [facility] [address] [place] [address] Dr. Candido Post Crystals LM Nom (Urine sed) SEEN Abnormal NONE SEEN [facility] Comment on above: Performed By: #### Clay HOLGUIN UMICRO #### [facility] [address] [place] [address] Dr. Candido Post Epithelial cells LM Ql (Urine sed) MODERATE Abnormal NONE SEEN /RARE [facility] Comment on above: Performed By: #### Clay HOLGUIN UMICRO #### [facility] [address] [place] [address] Dr. Candido Post MUCOUS NONE SEEN Normal NONE SEEN [facility] Comment on above: Performed By: #### E RUMadhuri UMICRO #### [facility] [address] [place] [address] Dr. Candido Post RBC 2-5 Abnormal 0-2 [facility] Comment on above: Performed By: #### E RUMadhuri UMICRO #### [facility] [address] [place] [address] Dr. Candido Post URIC ACID CRYSTALS RARE Normal [facility] Comment on above: Performed By: #### E MARIE HOLGUIN #### [facility] [address] [address] [address] Candido Post WBC 0-2 Abnormal NONE SEEN [facility] Comment on above: Performed By: #### E MARIE HOGLUIN #### [facility] [address] [address] [address] Candido Post HERPES SIMPLEX 1/2 IGGon HSV 1 IgG, Type Spec 9.66 index Critically high 0.00-0.90 [facility] Comment on above: Result Comment: Nega tive <0.91 Equivocal 0.91 - 1.09 Positive >1.09 Note: Negative indicates no antibodies detected to HSV-1. Equivocal may suggest early infection. If clinically appropriate, retest at later date. Positive indicates antibodies detected to HSV-1. Performed By: #### H SV IGG #### [facility] [address] [address] [address] Candido Post HSV 2 IgG Type Spec <0.91 Normal 0.00-0.90 [facility] Comment on above: Result Comment: Nega tive <0.91 Equivocal 0.91 - 1.09 Positive >1.09 Note: Negative indicates no antibodies detected to HSV-2. Equivocal may suggest early infection. If clinically appropriate, retest at later date. Positive indicates antibodies detected to HSV-2. Performed By: #### H SV IGG #### [facility] [address] [place] [address] Dr. Candido Post Encounters Encounter Date Encounter Type Care Provider Facility Start: 06-07-2023 End: 07-08-2023 ambulatory Bhavik WHITMAN Facility:[id number] Start: 05-10-2023 End: 05-11-2023 ambulatory Bhavik WHITMAN Facility:[facility] Start: 04-13-2023 ambulatory Bhavik WHITMAN Facility:[facility] Start: 04-05-2022 End: 04-06-[address] IBETH JOHNSTON Facility: Start: 02-10-2022 End: 02-10-[address] IBETH JOHNSTON Facility:[facility] Start: 05-19-2021 End: 05-20-[address] DOCTOR NOLASCO Facility:[facility] Payers Date Payer Category Payer Unknown [id number] 2.16.84 [id number] 1980 Unknown [id number] 2.16.84 [id number] 1980 Unknown [id number] 2.16.84 [id number] 1980 Unknown [id number] 2.16.8 [id number] 1980 Unknown [id number] 2.16.8 [id number] 1959 Unknown [id number] Clinical Note 05-11-2023 Note Date & Type [...] Father. Heart d (more content not included)... [facility] Comment on above: Result Comment: Elec [...] DATE CREATED AUTHOR AUTHOR'S ORGANIZ ATION 07/11/2023 [facility] FOR RECORDS PERTAINING TO PATIENTS WHO [...] BE BASED ON THE PRIMARY CLINICAL RECORDS. [facility]. provides no warranty or guarantee of the accuracy or completeness of information in this document.
--- NOTE | 2024-04-23 09:56 | XR_ITS ---
The [address] [address] Patient Name: SHANNAN CARRION MRN: [id number] date: 1980 Sex: F Assigned Patient Location: [facility] Current Patient Location: Accession/Order Number: [id number] Exam Date: 04/23/2024 10:00 Report Date: 04/24/2024 07:21 At the request of: BIETH MELTON Procedure: XR elbow RT min 3V PROCEDURE: XR elbow RT min 3V COMPARISON: None. HISTORY: Right Elbow Pain FINDINGS: BONES:No fracture, acute abnormality, or significant arthropathy. SOFT TISSUES:Negative. No visible soft tissue swelling. EFFUSION:None visible. OTHER: Negative. XR/XR elbow RT min 3V IMPRESSION: No acute radiographic abnormality Electronically authenticated by: CARLOS GASPAR Date: 04/24/2024 07:21
== END 2024-04-23 09:50 | disposition home or self-care (01) ==
LOC: RAD 09:50
PROVIDERS: PCP Family Medicine; Visit Provider Family Medicine
DX: M25.521 Pain in right elbow (principal)
CPT/HCPCS: 73080

== ENCOUNTER 2024-05-07 09:50 | Outpatient (OUT) | payer OTHER, SELFPAY ==
--- NOTE | 2024-05-07 09:53 | MM_ITS ---
Patient Name: SHANNAN CARRION MR#: [id number] : 1980 Exam Date: 05/07/2024 Ordering Doctor: DR Moiz Johnston . RADIOLOGY REPORT PROCEDURE: MM TOMOSYNTHESIS SCREENING BI COMPARISON: MM TOMOSYNTHESIS SCREENING BI, 12/29/2022. INDICATIONS: Screening Calculator Name NCI Breast Cancer Risk Assessment Tool 5 Year Breast Cancer Risk 0.70% Lifetime Breast Cancer Risk 7.90% Personal Breast Cancer No Personal Ovarian Cancer No Treatments None Family Cancers Grandmother-maternal with bone cancer at age 70. LOCATION: [facility] BREAST COMPOSITION: There are scattered areas of fibroglandular density. FINDINGS: DIAGNOSTIC CATEGORY 2--BENIGN FINDING: RIGHT BREAST: No significant suspicious finding. Scattered benign-appearing calcifications are present. No significant change has occurred. LEFT BREAST: No significant suspicious finding. No significant change has occurred. RECOMMENDATIONS: ROUTINE MAMMOGRAM AND CLINICAL EVALUATION IN 12 MONTHS. PLEASE NOTE: A NORMAL MAMMOGRAM DOES NOT EXCLUDE THE POSSIBILITY OF BREAST CANCER. A CLINICALLY SUSPICIOUS PALPABLE LUMP SHOULD BE BIOPSIED. Dictated by: Shemar Heck M.D. on 05/07/2024 at 15:00 Approved by: Shemar Heck M.D. on 05/07/2024 at 15:06
--- OUTSIDE RECORDS SUMMARY | 2024-05-07 09:57 | XMS_ITS | CCD ---
Author Organization [facility] Care Team Providers Care Pin Inserter Name Role Phone VICKIE, DR CRISTINA Primary [...] Medication Allergies] Propensity to adverse reactions (disorder) [facility] Repository Problems Active Problems Problem Classification Problem [...] Facil ity Outside Colonoscopyon 2022 Outside Colonoscopy [id number] .[id number] [facility] Reminderson 06-08-2023 Reminders - From: Jessica Ann LPN To: [facility] - Clinical; Sent: 06/08/2023 11:48:40 EST Show up: 05/07/2033 07:00:00 EDT Subject: colonoscopy recall Due Date/Time: 06/07/2033 07:00:00 EST Reminder/Recall Patient due for screening colonoscopy 06/07/2033. [facility] Lab Reportson 06-07-2023 Lab Reports [id number] .00TIFF [facility] Consent for Procedure/Surger yon 05-11-2023 Consent for Procedure/Surgery [id number] .00TIFF [facility] Facesheeton 05-11-2023 Facesheet [id number] .00TIFF [facility] Ambulatory Visit Summaryon 1 07-10-2022 Ambulatory Visit [...] you for choosing us for your care. [facility] Ambulatory Visit Summary SHANNAN CARRION :1980 Visit [...] you for choosing us for your care. [facility] Insurance Correspondence Off iceon 04-14-2023 Insurance Correspondence Office [id number] .[id number] Normal [facility] Physician Referralon 023 Physician Referral [id number] .00TIFF Normal [facility] Physician Referral [id number] .00TIFF Normal [facility] Physician Referralon 023 Physician Referral [id number] .00CD:127 Normal [facility] CULTURE URINEon 04-05-2022 CULTURE URINE Culture Observations : NO GROWTH. Normal [facility] Comment on above: Performed By: #### U RCX #### [facility] [address] [place] [address] Dr. Candido Post UA RANDOM W/MICROSCOPICon BACTERIA TRACE Abnormal NONE SEEN [facility] Comment on above: Performed By: #### U AMIC #### [facility] [address] [place] [address] Dr. Candido Post Bilirubin Ql (U) Negative Normal NEGATIVE [facility] Comment on above: Performed By: #### U AMIC #### [facility] [address] [place] [address] Dr. Candido Post CAST NONE SEEN Normal NONE SEEN [facility] Comment on above: Performed By: #### U AMIC #### [facility] [address] [place] [address] Dr. Candido Post Clarity (U) SL CLOUDY Abnormal CLEAR [facility] Comment on above: Performed By: #### U AMIC #### [facility] [address] [place] [address] Dr. Candido Post Color (U) LT. YELLOW Normal YELLOW [facility] Comment on above: Performed By: #### U AMIC #### [facility] [address] [place] [address] Dr. Candido Post Crystals LM Nom (Urine sed) NONE SEEN Normal NONE SEEN [facility] Comment on above: Performed By: #### U AMIC #### [facility] [address] [address] [address] Candido Post Epithelial cells LM Ql (Urine sed) RARE Normal NONE SEEN /RARE [facility] Comment on above: Performed By: #### U AMIC #### [facility] [address] [address] [address] Candido Post Glucose Ql (U) Negative Normal NEGATIVE [facility] Comment on above: Performed By: #### U AMIC #### [facility] [address] [address] [address] Candido Post Hemoglobin Ql (U) Negative Normal NEGATIVE The [facility] Comment on above: Performed By: #### U AMIC #### [facility] [address] [place] [address] Dr. Candido Post Ketones Ql (U) Negative Normal NEGATIVE [facility] Comment on above: Performed By: #### U AMIC #### [facility] [address] [address] [address] Candido Post LEUKOCYTES Negative Normal NEGATIVE [facility] Comment on above: Performed By: #### U AMIC #### [facility] [address] [address] [address] Candido Post MUCOUS NONE SEEN Normal NONE SEEN [facility] Comment on above: Performed By: #### U AMIC #### [facility] [address] [address] [address] Candido Post Nitrite Ql (U) Negative Normal NEGATIVE [facility] Comment on above: Performed By: #### U AMIC #### [facility] [address] [address] [address] Candido Post pH (U) 6.5 [pH] Normal 5-9 [facility] Comment on above: Performed By: #### U AMIC #### [facility] [address] [address] [address] Candido Post RBC 0-2 Normal 0-2 [facility] Comment on above: Performed By: #### U AMIC #### [facility] [address] [place] [address] Dr. Candido Post SPEC GRAVITY <=1.005 Abnormal 1.005-<=1.025 [facility] Comment on above: Performed By: #### U AMIC #### [facility] [address] [place] [address] Dr. Candido Post UA PROTEIN Negative Normal NEGATIVE/ TRACE [facility] Comment on above: Performed By: #### U AMIC #### [facility] [address] [place] [address] Dr. Candido Post Urobilinogen Qn (U) 0.2 {Stephan'U}/dL Normal 0.2 - 1. 0 [facility] Comment on above: Performed By: #### U AMIC #### [facility] [address] [place] [address] Dr. Candido Post WBC NONE SEEN Normal NONE SEEN [facility] Comment on above: Performed By: #### U AMIC #### [facility] [address] [place] [address] Dr. Candido Post CBC AUTO DIFFon 02-10-2022 BASO # 0.0 103/ul Normal 0.0-0.1 [facility] Comment on above: Performed By: #### C BC #### [facility] [address] [place] [address] Dr. Candido Post Basophils/100 WBC (Bld) 0.4 % Normal 0.2-2.0 [facility] Comment on above: Performed By: #### C BC #### [facility] [address] [place] [address] Dr. Candido Post EO # 0.3 103/ul Normal 0.0-0.7 [facility] Comment on above: Performed By: #### C BC #### [facility] [address] [place] [address] Dr. Candido Post Eosinophils/100 WBC (Bld) 2.3 % Normal 0.9-7.0 [facility] Comment on above: Performed By: #### C BC #### [facility] [address] [place] [address] Dr. Candido Post Erythrocyte distribution width (RBC) [Ratio] 12.0 % Normal 11.0-15.0 [facility] Comment on above: Performed By: #### C BC #### [facility] [address] [place] [address] Dr. Candido Post Hematocrit (Bld) [Volume fraction] 40.2 % Normal 36.0-48.0 [facility] Comment on above: Performed By: #### C BC #### [facility] [address] [place] [address] Dr. Candido Post Hemoglobin (Bld) [Mass/Vol] 13.9 g/dL Normal 12.0-16.0 [facility] Comment on above: Performed By: #### C BC #### [facility] [address] [place] [address] Dr. Candido Post IG # 0.02 10e3/ul Normal 0.00-0.03 [facility] Comment on above: Performed By: #### C BC #### [facility] [address] [place] [address] Dr. Candido Post IG % 0.2 % Normal 0.0-0.5 [facility] Comment on above: Performed By: #### C BC #### [facility] [address] [place] [address] Dr. Candido Post LYMPH # 4.2 103/ul Critically high 1.2-3.8 [facility] Comment on above: Performed By: #### C BC #### [facility] [address] [place] [address] Dr. Candido Post Lymphocytes/100 WBC (Bld) 39.0 % Normal 20.5-60.0 [facility] Comment on above: Performed By: #### C BC #### [facility] [address] [place] [address] Dr. Candido Post MANUAL DIFF REQ NO Normal [facility] Comment on above: Performed By: #### C BC #### [facility] [address] [place], [place] [id number] Dr. Candido Post MCH (RBC) [Entitic mass] 32.7 pg Normal 26.7-34.0 [facility] Comment on above: Performed By: #### C BC #### [facility] [address] [place] [address] Dr. Candido Post MCHC (RBC) [Mass/Vol] 34.6 g/dL Normal 29.9-35.2 [facility] Comment on above: Performed By: #### C BC #### [facility] [address] [place] [address] Dr. Candido Post MCV (RBC) [Entitic vol] 94.6 fL Normal 81.0-99.0 [facility] Comment on above: Performed By: #### C BC #### [facility] [address] [place] [address] Dr. Candido Post MONO # 0.6 103/ul Normal 0.3-0.8 [facility] Comment on above: Performed By: #### C BC #### [facility] [address] [place] [address] Dr. Candido Post Monocytes/100 WBC (Bld) 5.7 % Normal 1.7-12.0 [facility] Comment on above: Performed By: #### C BC #### [facility] [address] [place] [address] Dr. Candido Post NEUT # 5.6 103/ul Normal 1.4-6.5 [facility] Comment on above: Performed By: #### C BC #### [facility] [address] [place] [address] Dr. Candido Post Neutrophils/100 WBC (Bld) 52.4 % Normal 43.0-75.0 [facility] Comment on above: Performed By: #### C BC #### [facility] [address] [place] [address] Dr. Candido Post Platelet mean volume (Bld) [Entitic vol] 9.9 fL Normal 9.5-13.5 [facility] Comment on above: Performed By: #### C BC #### [facility] [address] [address] [address] Candido Post PLT 255 103/ul Normal 150-450 [facility] Comment on above: Performed By: #### C BC #### [facility] [address] [address] [address] Candido Post RBC 4.25 106/ul Normal 4.20-5.40 [facility] Comment on above: Performed By: #### C BC #### [facility] [address] [id number] Candido Post WBC 10.7 103/ul Normal 4.0-11.0 [facility] Comment on above: Performed By: #### C BC #### [facility] [address] [address] [address] ABD/PELVIS WO CONon [...] LISA PITTS Date: 2022-02-10 00:55 Normal [facility] CULTURE URINEon 02-10-2022 CULTURE URINE Culture Observations : NO GROWTH. Normal [facility] Comment on above: Performed By: #### U RCX #### [facility] [address] [place] [address] Dr. Candido Post ER URINE PROFILEon 2 Bilirubin Ql (U) Negative Normal NEGATIVE [facility] Comment on above: Performed By: #### Clay HOLGUIN UMICRO #### [facility] [address] [place] [address] Dr. Candido Post Clarity (U) CLEAR Normal CLEAR [facility] Comment on above: Performed By: #### Clay HOLGUIN UMICRO #### [facility] [address] [place] [address] Dr. Candido Post Color (U) LT. YELLOW Normal YELLOW [facility] Comment on above: Performed By: #### Clay HOLGUIN UMICRO #### [facility] [address] [place] [address] Dr. Candido SANDERS A micrscopic examination will be performed if indicated. Normal [facility] Comment on above: Performed By: #### Clay HOLGUIN UMICRO #### [facility] [address] [place] [address] Dr. Candido Post Glucose Ql (U) Negative Normal NEGATIVE [facility] Comment on above: Performed By: #### Clay HOLGUIN UMICRO #### [facility] [address] [place] [address] Dr. Candido Post Hemoglobin Ql (U) MODERATE Abnormal NEGATIVE [facility] Comment on above: Performed By: #### MARGARET MORRISSEYICRO #### [facility] [address] [place] [address] Dr. Candido Post Ketones Ql (U) Negative Normal NEGATIVE [facility] Comment on above: Performed By: #### MARGARET MORRISSEYICRO #### [facility] [address] [place] [address] Dr. Candido Post LEUKOCYTES Negative Normal NEGATIVE [facility] Comment on above: Performed By: #### Clay HOLGUIN UMICRO #### [facility] [address] [place] [address] Dr. Candido Post Nitrite Ql (U) Negative Normal NEGATIVE [facility] Comment on above: Performed By: #### Clay HOLGUIN UMICRO #### [facility] [address] [place] [address] Dr. Candido Post pH (U) 6.0 [pH] Normal 5-9 [facility] Comment on above: Performed By: #### Clay HOLGUIN UMICRO #### [facility] [address] [place] [address] Dr. Candido Post SPEC GRAVITY >=1.030 Abnormal 1.005-<=1.025 [facility] Comment on above: Performed By: #### Clay HOLGUIN UMICRO #### [facility] [address] [place] [address] Dr. Candido Post UA PROTEIN Negative Normal NEGATIVE/ TRACE [facility] Comment on above: Performed By: #### Clay HOLGUIN UMICRO #### [facility] [address] [place] [address] Dr. Candido Post UR MICRO IND INDICATED Normal [facility] Comment on above: Performed By: #### Clay HOLGUIN UMICRO #### [facility] [address] [place] [address] Dr. Candido Post Urobilinogen Qn (U) 0.2 {Stephan'U}/dL Normal 0.2 - 1. 0 [facility] Comment on above: Performed By: #### Clay HOLGUIN UMICRO #### [facility] [address] [place] [address] Dr. Candido Post PROF 14(COMP METB)on 022 Albumin [Mass/Vol] 3.8 g/dL Normal 3.4-5.0 [facility] Comment on above: Performed By: #### C MP #### [facility] [address] [place] [address] Dr. Candido Post Albumin/Globulin [Mass ratio] 1.2 {ratio} Normal [facility] Comment on above: Performed By: #### C MP #### [facility] [address] [place] [address] Dr. Candido Post ALP [Catalytic activity/Vol] 64 U/L Normal 46-116 [facility] Comment on above: Performed By: #### C MP #### [facility] [address] [address] [address] Candido Post ALT [Catalytic activity/Vol] 26 U/L Normal 14-59 [facility] Comment on above: Performed By: #### C MP #### [facility] [address] [address] [address] Candido Post Anion gap [Moles/Vol] 13.2 mmol/L Normal [facility] Comment on above: Performed By: #### C MP #### [facility] [address] [address] [address] Candido Post AST [Catalytic activity/Vol] 14 U/L Critically low 15-37 [facility] Comment on above: Performed By: #### C MP #### [facility] [address] [address] [address] Candido Post Bilirubin [Mass/Vol] 0.3 mg/dL Normal 0.2-1.0 [facility] Comment on above: Performed By: #### C MP #### [facility] [address] [address] [address] Candido Post Calcium [Mass/Vol] 9.5 mg/dL Normal 8.5-10.1 [facility] Comment on above: Performed By: #### C MP #### [facility] [address] [address] [address] Candido Post Chloride [Moles/Vol] 104 mmol/L Normal 98-107 [facility] Comment on above: Performed By: #### C MP #### [facility] [address] [address] [address] Candido Post CO2 [Moles/Vol] 25.6 mmol/L Normal 21.0-32.0 [facility] Comment on above: Performed By: #### C MP #### [facility] [address] [address] [address] Candido Post Creatinine [Mass/Vol] 0.82 mg/dL Normal 0.55-1.02 [facility] Comment on above: Performed By: #### C MP #### [facility] [address] [address] [address] Candido Post EGFR-AF IRANIAN >60 Normal >=60 [facility] Comment on above: Performed By: #### C MP #### [facility] [address] [address] [address] Candido Post EGFR-NON AF IRANIAN >60 Normal >=60 [facility] Comment on above: Performed By: #### C MP #### [facility] [address] [address] [address] Candido Post Globulin (S) [Mass/Vol] 3.2 g/dL Normal [facility] Comment on above: Performed By: #### C MP #### [facility] [address] [address] [address] Candido Post Glucose [Mass/Vol] 116 mg/dL Critically high 74-106 [facility] Comment on above: Performed By: #### C MP #### [facility] [address] [address] [address] Candido Post Potassium [Moles/Vol] 3.8 mmol/L Normal 3.5-5.1 [facility] Comment on above: Performed By: #### C MP #### [facility] [address] [address] [address] Candido Post Protein [Mass/Vol] 7.0 g/dL Normal 6.4-8.2 [facility] Comment on above: Performed By: #### C MP #### [facility] [address] [address] [address] Candido Post Sodium [Moles/Vol] 139 mmol/L Normal 136-145 [facility] Comment on above: Performed By: #### C MP #### [facility] [address] [address] [address] Candido Post Urea nitrogen [Mass/Vol] 14.0 mg/dL Normal 7.0-18.0 [facility] Comment on above: Performed By: #### C MP #### [facility] [address] [place] [address] Dr. Candido Post Urea nitrogen/Creatinine [Mass ratio] 17.1 mg/mg Normal [facility] Comment on above: Performed By: #### C MP #### [facility] [address] [place] [address] Dr. Candido Post URINE MICROSCOPIC ONLYon BACTERIA SMALL Abnormal NONE SEEN [facility] Comment on above: Performed By: #### Clay HOLGUIN UMICRO #### [facility] [address] [place] [address] Dr. Candido Post Bacteria identified Cx Nom (U) INDICATED Normal [facility] Comment on above: Performed By: #### E CHELSIE UMICRO #### [facility] [address] [place] [address] Dr. Candido Post CAST NONE SEEN Normal NONE SEEN [facility] Comment on above: Performed By: #### Clay HOLGUIN UMICRO #### [facility] [address] [place] [address] Dr. Candido Post Crystals LM Nom (Urine sed) SEEN Abnormal NONE SEEN [facility] Comment on above: Performed By: #### Clay HOLGUIN UMICRO #### [facility] [address] [place] [address] Dr. Candido Post Epithelial cells LM Ql (Urine sed) MODERATE Abnormal NONE SEEN /RARE [facility] Comment on above: Performed By: #### Clay HOLGUIN UMICRO #### [facility] [address] [place] [address] Dr. Candido Post MUCOUS NONE SEEN Normal NONE SEEN [facility] Comment on above: Performed By: #### E RUMadhuri UMICRO #### [facility] [address] [place] [address] Dr. Candido Post RBC 2-5 Abnormal 0-2 [facility] Comment on above: Performed By: #### E RUMadhuri UMICRO #### [facility] [address] [place] [address] Dr. Candido Post URIC ACID CRYSTALS RARE Normal [facility] Comment on above: Performed By: #### E MARIE HOLGUIN #### [facility] [address] [address] [address] Candido Post WBC 0-2 Abnormal NONE SEEN [facility] Comment on above: Performed By: #### E MARIE HOLGUIN #### [facility] [address] [address] [address] Candido Post HERPES SIMPLEX 1/2 IGGon HSV 1 IgG, Type Spec 9.66 index Critically high 0.00-0.90 [facility] Comment on above: Result Comment: Nega tive <0.91 Equivocal 0.91 - 1.09 Positive >1.09 Note: Negative indicates no antibodies detected to HSV-1. Equivocal may suggest early infection. If clinically appropriate, retest at later date. Positive indicates antibodies detected to HSV-1. Performed By: #### H SV IGG #### [facility] [address] [address] [address] Candido Post HSV 2 IgG Type Spec <0.91 Normal 0.00-0.90 [facility] Comment on above: Result Comment: Nega tive <0.91 Equivocal 0.91 - 1.09 Positive >1.09 Note: Negative indicates no antibodies detected to HSV-2. Equivocal may suggest early infection. If clinically appropriate, retest at later date. Positive indicates antibodies detected to HSV-2. Performed By: #### H SV IGG #### [facility] [address] [place] [address] Dr. Candido Post Encounters Encounter Date Encounter Type Care Provider Facility Start: 06-07-2023 End: 07-08-2023 ambulatory Bhavik WHITMAN Facility:CD:[id number] Start: 05-10-2023 End: 05-11-2023 ambulatory Bhavik WHITMAN Facility:[facility] Start: 04-13-2023 ambulatory Bhavik WHITMAN Facility:[facility] Start: 04-05-2022 End: 04-06-[address] IBETH JOHNSTON Facility: Start: 02-10-2022 End: 02-10-[address] IBETH JOHNSTON Facility:[facility] Start: 05-19-2021 End: 05-20-[address] DOCTOR NOLASCO Facility:[facility] Payers Date Payer Category Payer Unknown [id number] [id number] [id number] 1980 Unknown [id number] [id number] [id number] 1980 Unknown [id number] 2.16.84 [id number] 1980 Unknown [id number] [id number] 1980 Unknown [id number] 2.16.8 [id number] 1960 Unknown [id number] Clinical Note 05-11-2023 Note Date & Type [...] Father. Heart d (more content not included)... [facility] Comment on above: Result Comment: Elec tronically [...] DATE CREATED AUTHOR AUTHOR'S ORGANIZ ATION 07/11/[address] [facility] FOR RECORDS PERTAINING TO PATIENTS WHO [...] BE BASED ON THE PRIMARY CLINICAL RECORDS. [employer] [facility]. provides no warranty or guarantee of the accuracy or completeness of [phone] in [phone] [id number]
== END 2024-05-07 09:51 | disposition home or self-care (01) ==
LOC: MAMMO 09:50
PROVIDERS: PCP Family Medicine; Visit Provider Family Medicine
DX: Z12.31 Encounter for screening mammogram for malignant neoplasm of breast (principal); G56.21 Lesion of ulnar nerve, right upper limb; Z80.8 Family history of malignant neoplasm of other organs or systems
CPT/HCPCS: 77063; 77067